=== PATIENT | female | born 2000 | race Hispanic/Latino ===

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

== ENCOUNTER 2020-01-25 05:25 | Emergency (ER) | payer SELFPAY ==
--- OUTSIDE RECORDS SUMMARY | 2020-01-25 05:27 | XMS REPORT ---
:2000 [facility] Christine [address] [place] [id number] Care Team Providers Name Role Phone Unavailable Unavailable Unavailable Problems This patient has no known problems. Allergies, Adverse Reactions, Alerts This patient has no known allergies or adverse reactions. Medications This patient has no known medications.
[2020-01-25] MEDS ORDERED: NA CHLORIDE 0.9% 1,000 ML ONE (06:44)
[2020-01-25] MEDS ORDERED: ONDANSETRON 4 MG/2 ML VIAL ONE (06:44)
[2020-01-25] MEDS ORDERED: ACETAMINOPHEN 500 MG TAB ONE (06:44)
[2020-01-25 06:54] LABS: Absolute Lymphocytes (CBC) 2.4 K/uL (0.7-4.9); Basophils % 0.5 % (0-1.3); Hematocrit 34.8 % (36.0-45.0); Lymphocytes % 20.7 % (15.3-44.8); MPV 7.3 fL (7.6-11.3); RBC Red Blood Cell Count 4.95 M/uL (3.86-4.86)
[2020-01-25 07:00] LABS: Urine Blood NEGATIVE (NEG); Urine Glucose NEGATIVE (NEG); Urine Protein NEGATIVE (NEG)
[2020-01-25 07:17] LABS: Urine Bacteria <20 /HPF (<20); Urine Culture Reflex Order REFLEXED; Urine RBC <5 /HPF (NONE SEEN)
[2020-01-25 07:28] LABS: ALT/SGPT 10 U/L (12-78); AST/SGOT 9 U/L (15-37); Albumin 3.1 g/dL (3.4-5.0); Alkaline Phosphatase 145 U/L (45-117); BUN Blood Urea Nitrogen 5 mg/dL (7-18); Bicarbonate 24 mmol/L (21-32); Bilirubin Direct < 0.1 mg/dL (0-0.2); Bilirubin Total 0.2 mg/dL (0.2-1.0); Glucose Level 86 mg/dL (74-106); HCG, Quantitative 43619 mIU/mL (1-3); Potassium 3.8 mmol/L (3.5-5.1); Protein, Total 8.1 g/dL (6.4-8.2); Sodium Level 137 mmol/L (136-145)
--- NOTE | 2020-01-25 08:26 | EDPHYS ---
Physician Documentation [facility] Name: Maxine Durbin Age: 19 yrs Sex: Female : 2000 Arrival Date: 01/25/2020 Time: 05:28 Bed 18 Private MD: ED Physician Alexandru Rowan HPI: 01/24 07:38 This 19 yrs old Female presents to ER via Ambulatory with complaints of jr8 Abdominal Pain. 07:38 The patient presents with abdominal pain in the lower abdomen. Onset: The jr8 symptoms/episode began/occurred acutely, today. The symptoms do not radiate. Associated signs and symptoms: Pertinent positives: nausea and vomiting. The symptoms are described as crampy. Modifying factors: The symptoms are alleviated by nothing, the symptoms are aggravated by nothing. Severity of pain: At its worst the pain was mild in the emergency department the pain is unchanged. The patient has not experienced similar symptoms in the past. The patient has not recently seen a physician. Patient approximately 14 weeks . Denies discharge or spotting. Stated that she started with lower abdominal pain. Has n/v related to . 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 - Social history:: Smoking status: Patient denies any tobacco usage or history of. ROS: 07:38 Eyes: Negative for injury, pain, redness, and discharge, ENT: Negative for injury, jr8 pain, and discharge, Neck: Negative for injury, pain, and swelling, Cardiovascular: Negative for chest pain, palpitations, and edema, Respiratory: Negative for shortness of breath, cough, wheezing, and pleuritic chest pain, Back: Negative for injury and pain, MS/Extremity: Negative for injury and deformity, Skin: Negative for injury, rash, and discoloration, Neuro: Negative for headache, weakness, numbness, tingling, and seizure. 07:38 Abdomen/GI: Positive for abdominal pain, nausea and vomiting, abdominal cramps. Exam: 07:38 Eyes: Pupils equal round and reactive to light, extra-ocular motions intact. Lids and jr8 lashes normal. Conjunctiva and sclera are non-icteric and not injected. Cornea within normal limits. Periorbital areas with no swelling, redness, or edema. ENT: Nares patent. No nasal discharge, no septal abnormalities noted. Tympanic membranes are normal and external auditory canals are clear. Oropharynx with no redness, swelling, or masses, exudates, or evidence of obstruction, uvula midline. Mucous membranes moist. Neck: Trachea midline, no thyromegaly or masses palpated, and no cervical lymphadenopathy. Supple, full range of motion without nuchal rigidity, or vertebral point tenderness. No Meningismus. Cardiovascular: Regular rate and rhythm with a normal S1 and S2. No gallops, murmurs, or rubs. Normal PMI, no JVD. No pulse deficits. Respiratory: Lungs have equal breath sounds bilaterally, clear to auscultation and percussion. No rales, rhonchi or wheezes noted. No increased work of breathing, no retractions or nasal flaring. Back: No spinal tenderness. No costovertebral tenderness. Full range of motion. Skin: Warm, dry with normal turgor. Normal color with no rashes, no lesions, and no evidence of cellulitis. MS/ Extremity: Pulses equal, no cyanosis. Neurovascular intact. Full, normal range of motion. Neuro: Awake and alert, GCS 15, oriented to person, place, time, and situation. Cranial nerves II-XII grossly intact. Motor strength 5/5 in all extremities. Sensory grossly intact. Cerebellar exam normal. Normal gait. 07:38 Abdomen/GI: Inspection: abdomen appears normal, Bowel sounds: active, all quadrants, Palpation: soft, in all quadrants, mild abdominal tenderness, in the suprapubic area, right lower quadrant and left lower quadrant, mass, is not appreciated, rebound tenderness, is not appreciated, voluntary guarding, is not appreciated, involuntary guarding, is not appreciated, no appreciated organomegaly, Indicators: McBurney's point is not tender, Haywood's sign is negative, Rovsing's sign is negative, Liver: tenderness, is not appreciated. Vital Signs: 05:56 BP 108 / 68; Pulse 101; Resp 16 S; Temp 98.6(O); Pulse Ox 99% on R/A; Weight 81.65 kg bb (R); Height 5 ft. 0 in. (152.40 cm) (R); Pain 6/10; 06:56 BP 110 / 72; Pulse 79; Resp 18; Pulse Ox 100% ; ao 05:56 Body Mass Index 35.15 (81.65 kg, 152.40 cm) bb MDM: 06:11 Patient medically screened. rust 08:17 Data reviewed: vital signs, nurses notes, lab test result(s), radiologic studies, jr8 ultrasound. Data interpreted: Pulse oximetry: on room air is 100 %. Interpretation: normal. Counseling: I had a detailed discussion with the patient and/or guardian regarding: the historical points, exam findings, and any diagnostic results supporting the discharge/admit diagnosis, lab results, radiology results, the need for outpatient follow up, a family practitioner, an OB/Gyne specialist, to return to the emergency department if symptoms worsen or persist or if there are any questions or concerns that arise at home. Response to treatment: the patient's symptoms have mildly improved after treatment, patient is well hydrated. ED course: Discussed with patient that there were no abnormal findings on US. Labs stable. Recommended observation at home for now. If she were to have worsening of pain, developing diarrhea, or fevers. To come back for reevaluation. Otherwise needs to f/u with OB. Patient good with this. 01/24 06:34 Order name: Quantitative Hcg; Complete Time: 07:37 01/24 06:34 Order name: Basic Metabolic Panel; Complete Time: 07:37 01/24 06:34 Order name: CBC with Diff; Complete Time: 06:57 01/24 06:34 Order name: LFT's; Complete Time: 07:37 01/24 06:34 Order name: Urine Microscopic Only; Complete Time: 07:21 8 01/24 06:57 Order name: Urine Dipstick--Ancillary (enter results); Complete Time: 07:21 va 01/24 06:34 Order name: Urine Test (obtain specimen); Complete Time: 06:46 01/24 06:34 Order name: IV Saline Lock; Complete Time: 06:46 01/24 06:57 Order name: Urine --Ancillary (enter results); Complete Time: 07:21 mt 01/24 06:59 Order name: US OB Limited; Complete Time: 08:39 rust 01/24 07:19 Order name: Urine Culture [facility] 01/24 06:34 Order name: Labs collected and sent; Complete Time: 06:46 jr8 01/24 06:34 Order name: NPO; Complete Time: 06:35 jr 01/24 06:34 Order name: Urine Dipstick-Ancillary (obtain specimen); Complete Time: 06:46 jr8 Administered Medications: 06:46 Drug: Tylenol 1000 mg Route: PO; ao 07:07 Follow up: Response: No adverse reaction ao 06:46 Drug: NS 0.9% 1000 ml Route: IV; Rate: 1000 ml; Site: right antecubital; ao 07:07 Follow up: IV Status: Completed infusion; IV Intake: 1000ml ao 06:46 Drug: Zofran (Ondansetron) 4 mg Route: IVP; Site: right antecubital; ao 07:07 Follow up: Response: No adverse reaction ao Disposition: 01/25 07:01 Co-signature as Attending Physician, Alexandru Rowan MD I agree with the assessment and tw4 plan of care. Disposition: 01/25/20 08:25 Discharged to Home. Impression: Abdominal and pelvic pain. - Condition is Stable. - Discharge Instructions: Abdominal Pain During . - Prescriptions for Zofran 4 mg Oral Tablet - take 1 tablet by ORAL route every 12 hours As needed; 20 tablet. - Medication Reconciliation Form, Thank You Letter, Antibiotic Education, Prescription Opioid Use form. - Follow up: Private Physician; When: 2 - 3 days; Reason: Recheck today's complaints, Continuance of care, Re-evaluation by your physician. - Problem is new. - Symptoms have improved. Signatures: Dispatcher [employer] [facility] Maryann Chu RN RN bb Smirch, Shelby, RN RN ss Roszak, Josh, PA PA jr8 Jamaal Mitchell RN RN ao Wadley, Terrence, MD MD tw4 Corrections: (The following items were deleted from the chart) 01/24 08:41 08:25 01/25/2020 08:25 Discharged to Home. Impression: Abdominal and pelvic pain. ss Condition is Stable. Forms are Medication Reconciliation Form, Thank You Letter, Antibiotic Education, Prescription Opioid Use. Follow up: Private Physician; When: 2 - 3 days; Reason: Recheck today's complaints, Continuance of care, Re-evaluation by your physician. Problem is new. Symptoms have improved. jr8
--- NOTE | 2020-01-25 08:26 | ER ---
Nurse's Notes [facility] Name: Maxine Durbin Age: 19 yrs Sex: Female : 2000 Arrival Date: 01/25/2020 Time: 05:28 Bed 18 Private MD: Diagnosis: Abdominal and pelvic pain Presentation: 01/24 05:56 Chief complaint: Patient states: she is c/o lower abdominal intermittent pain since bb yesterday then this morning she was shaking like she was going to have a seizure but she did not have a seizure pt is 14 weeks . Coronavirus screen: The patient has NOT traveled to a country currently being monitored by the [facility] within the last 14 days. Proceed with normal triage procedures. Ebola Screen: No symptoms or risks identified at this time. Initial Sepsis Screen: Does the patient meet any 2 criteria? No. Patient's initial sepsis screen is negative. Does the patient have a suspected source of infection? No. Patient's initial sepsis screen is negative. Risk Assessment: Do you want to hurt yourself or someone else? Patient reports no desire to harm self or others. Onset of symptoms was January 24, 2020. 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 - Social history:: Smoking status: Patient denies any tobacco usage or history of. Screenin:02 Abuse screen: Denies threats or abuse. Denies injuries from another. Nutritional ao screening: No deficits noted. Tuberculosis screening: No symptoms or risk factors identified. Fall Risk None identified. Assessment: 05:58 General: Appears in no apparent distress. comfortable, Behavior is calm, cooperative, ao appropriate for age. Pain: Complains of pain in abdomen Pain. Neuro: Level of Consciousness is awake, alert, obeys commands, Moves all extremities. Full function Speech is normal, Facial symmetry appears normal. Cardiovascular: Capillary refill < 3 seconds Patient's skin is warm and dry. Respiratory: Airway is patent Respiratory effort is even, unlabored, Respiratory pattern is regular, symmetrical. GI: Bowel sounds present X 4 quads. Abd is soft and non tender. : Urine is clear. EENT: No signs and/or symptoms were reported regarding the EENT system. Derm: Skin is intact, Skin is pink, warm \T\ dry. normal, Skin temperature is warm. Musculoskeletal: No signs and/or symptoms reported regarding the musculoskeletal system. 07:45 Reassessment: Patient is alert, oriented x 3, equal unlabored respirations, skin aa5 warm/dry/pink. Patient denies pain at this time. Patient states feeling better. Pt denies vaginal bleeding. Awaiting US results, pt notified of wait time . Vital Signs: 05:56 BP 108 / 68; Pulse 101; Resp 16 S; Temp 98.6(O); Pulse Ox 99% on R/A; Weight 81.65 kg bb (R); Height 5 ft. 0 in. (152.40 cm) (R); Pain 6/10; 06:56 BP 110 / 72; Pulse 79; Resp 18; Pulse Ox 100% ; ao 05:56 Body Mass Index 35.15 (81.65 kg, 152.40 cm) bb ED Course: 05:28 Patient arrived in ED. cl3 05:57 Jamaal Mitchell, RN is Primary Nurse. ao 05:59 Triage completed. bb 06:00 Arm band placed on Patient placed in an exam room, on a stretcher, on pulse oximetry. bb Family accompanied patient. 06:02 Patient has correct armband on for positive identification. Pulse ox on. NIBP on. ao 06:10 Giuliano Muñoz PA is PHCP. jr8 06:10 Alexandru Rowan MD is Attending Physician. jr8 06:40 Inserted saline lock: 20 gauge in right antecubital area, using aseptic technique. ao ,using aseptic technique. By nuclear reactor technicianNan Padgett Blood collected. 07:07 Report given to BAM Orozco. ao 07:14 US OB Limited In Process Unspecified. EDMS 07:56 Report received from BAM Hinton. aa5 08:41 No provider procedures requiring assistance completed. IV discontinued, intact, ss bleeding controlled, No redness/swelling at site. Pressure dressing applied. Administered Medications: 06:46 Drug: Tylenol 1000 mg Route: PO; ao 07:07 Follow up: Response: No adverse reaction ao 06:46 Drug: NS 0.9% 1000 ml Route: IV; Rate: 1000 ml; Site: right antecubital; ao 07:07 Follow up: IV Status: Completed infusion; IV Intake: 1000ml ao 06:46 Drug: Zofran (Ondansetron) 4 mg Route: IVP; Site: right antecubital; ao 07:07 Follow up: Response: No adverse reaction ao Intake: 07:07 IV: 1000ml; Total: 1000ml. ao Outcome: 08:25 Discharge ordered by MD. rich 08:41 Discharged to home ambulatory. ss 08:41 Condition: good 08:41 Discharge instructions given to patient, Instructed on discharge instructions, follow up and referral plans. medication usage, Demonstrated understanding of instructions, follow-up care, medications, Prescriptions given X 1. 08:41 Patient left the ED. ss Signatures: Dispatcher [employer] EDMS Maryann Chu RN RN bb Calderon, Audri, RN RN aa5 Melody Tirado RN RN ss Roszak, Josh, PA PA jr8 Jamaal Mitchell RN RN ao Lewis, Charde cl3
--- NOTE | 2020-01-25 08:34 | RAD REPORT ---
EXAM DESCRIPTION: US - OB Limited - 01/25/2020 7:11 am CLINICAL HISTORY: with abdominal cramping FINDINGS: A limited OB ultrasound performed to assess amniotic fluid, viability, cervix and pl acenta Placenta is anterior. No subchorionic/retroplacental bleed Amniotic fluid within normal limits Cardiac activity 153 beats per minute. Cervix is closed and normal caliber. Right and left adnexal unremarkable IMPRESSION: Unremarkable limited OB ultrasound
[2020-01-25 09:10] VITALS: TEMP 98.6
[2020-01-25 09:12] VITALS: BP 110/72; O2SAT 100
== END 2020-01-25 08:41 | disposition home or self-care (01) ==
LOC: ER 05:25
DX: R10.9 Unspecified abdominal pain (principal); R10.2 Pelvic and perineal pain; Z88.0 Allergy status to penicillin
CPT/HCPCS: 36415; 76815; 80048; 80076; 81003; 81015; 81025; 84702; 85025; 87086; 87088; 96374; 99284; J2405; J7030

== ENCOUNTER 2022-02-21 13:18 | Emergency (ER) | payer SELFPAY ==
--- OUTSIDE RECORDS SUMMARY | 2022-02-21 13:21 | XMS REPORT | Continuity of Care Document ---
:2000 Author Organization [facility] t Address [address] [place] [address] Care Team Providers Name Role Phone Pcp, Patient Does Not Have A Primary Care Physician [id number] Singer FOX Attending Clinician Akinsipe WHCNP, C Attending Clinician AKINCARLITOS C Attending Clinician Unavailable Chester LOAIZA, R Attending Clinician Sean LOREDO Attending Clinician Unavailable NADEEM ART Attending Clinician Unavailable MINH Attending Clinician Unavailable Fifi SANTIAGO Admitting Clinician Unavailable Maurice MASSEY Admitting Clinician Unavailable Payers Payer Name Policy Type Policy Number Effective Date Expiration Date S ralph [facility] MOM CHIP DEWEY [id number] 2020 LOW FPL 00:00:00 [employer] MOM [id number] 2020 CHIP DEWEY LOW FPL 00:00:00 TITLE V 0-100% [id number] 2013 2013 00:00:00 00:00:00 Advance Directives Directive Decision Effective Termination Comments Source Date Date Healthcare Agents on N/A [facility] ersity FileNameRelationshipHealthcare [facility] Agent Medical RelationshipCommunicationCentral Park Hospitalther[facility] Care [phone] (Mobile) [email or web address] Condition Condition Condition Status Onset Resolution Last Treating Co mments Source Name Details Category Date Date Treatment Clinician Date COVID-19 COVID-19 Disease Active 2019- Unive rs 7-18 ity of 00:00: [place] 00 Medical Branch 32 weeks 32 weeks Disease Active 2019- Unive rs gestation gestation 7-18 ity of of of 00:00: [place] 00 [facility] Branch Need for Need for Disease Active Unive rs Tdap Tdap 7-02 ity of vaccinatio vaccinatio [place] Obesity Obesity Disease Active 2019- Univers (BMI (BMI 6-28 ity of 30-39.9) 30-39.9) 00:00: [place] 00 Medical Branch Circumvall Circumvall Disease Active 2019- U nivers ate ate 4-30 ity of placenta placenta 00:00: [place] during during 00 Medical Bran ch in second in second trimester, trimester, antepartum antepartum Anemia of Anemia of Disease Active Uni vers mother in mother in 4-28 [place] , , [place] ante[place] antepartum 00 Me dical Branch Abnormal Abnormal Disease Active Overview: Un aline maternal maternal 4-28 Formattin ity of glucose glucose 00:00: g of this [place] tolerance, tolerance, 00 note Me dical antepartum antepartum might be Branch different from the original. Passed 3hr gtt Supervisio Supervisio Disease Active 2019-0 U nivers n of n of 4-23 ity of high-risk high-risk 00:[place] [facility] with with Branch insufficie insufficie nt nt care care Multiparit Multiparit Disease Active 2019-0 U nivers y y 4-23 ity of 00:00: [place] 00 Medical Branch Obesity in Obesity in Disease Active 2020-0 U nivers 4-23 ity of 00:00: [place] 00 Medical Branch Hx of Hx of Disease Active Univers maternal maternal 7-21 ity of laceration laceration 00:00: [place] , 4th , 4th 00 Medical degree, degree, Branch currently currently , , second second trimester trimester Seizure Seizure Disease Active Univers disorder disorder 6-28 ity of during during 00:00: [place] 00 [facility] in third in third Branch trimester trimester History of History of Disease Active Overview : Univers seizure seizure 4-22 Formattin ity o f 00:00: g of this [place] 00 note Medical might be Branch different from the original. Last seizure x2 years ago, last on meds 5 months ago Allergies, Adverse Reactions, Alerts Allergy Allergy Status Severity Reaction(s) Onset Inactive Treating Comm ents Source Name Type Date Date Clinician FELISHALL DRUG Active Rash Univers IN INGREDI 07-02 ity of 00:00: [place] 00 Medical Branch Ampicill Propensi Active Rash Univer s in ty to 816 ity of adverse 00:00: [place] reaction 00 Medical s Branch Social History Social Habit Start Date Stop Date Quantity Comments Source Exposure to Not sure [facility] SARS-CoV-2 [place] [facility] (event) Branch Alcohol intake 2020-06-08 2020-06-08 Current University of 00:00:00 00:00:00 non-drinker of [facility] alcohol [place] (finding) Tobacco use and 2013-07-02 2013-07-02 Never used Universit y of exposure 00:00:00 00:00:00 [facility] Tobacco Comment 2013-07-02 2013-07-02 no smoke Universit y of 00:00:00 00:00:00 exposure [facility] Sex Assigned At 2000 2000 Universit y of 00:00:00 00:00:00 [facility] Smoking Status Start Date Stop Date Source Never smoker [facility] Medications Ordered Filled Start Stop Current Ordering Indication Dosage Frequency Signature Comments Components Source Medication Medication Date Date Medication? Clinician (SIG) Name Name levETIRAcet 2020- No 1500mg 1,500 mg, Univers am (KEPPRA) 08-05 IV ity of in NACL 10:00: 09:16 [place] (ISO-OS[place] 00 :00 ONCE, 1 Medical 1,500 dose, On Branch mg/100 mL Sun RTU 08/05/21 at 0500, Administer over 15 Minutes, 100 mL levETIRAcet Yes [id number] 1500mg Take 3 Univers am 500 mg 08-05 tablets by ity of tablet 00:00: mouth 2 00 (two) Medical times Branch daily. docusate Yes [id number] 240mg Take 1 U nivers calcium 240 7-21 capsule by it y of mg capsule 00:00: mouth [place] 00 daily as Medical needed for Branch Constipati on. ibuprofen 2019- Yes [id number] 600mg Take 1 Univers 600 mg 7-21 tablet by ity of tablet 00:00: mouth [place] 00 every 6 Medical (six) Branch hours as needed for Pain (scale 1-3). simethicone 2019- Yes [id number] 160mg Take 2 Univers 80 mg 7-21 tablets by ity of chewable 00:00: mouth [place] tablet 00 after Medical meals and Branch at bedtime as needed for Gas. 2019-0 Yes [id number] 1{tbl} Take 1 Univers vitamin 7-21 tablet by ity of w/FA tablet 00:00: mouth [place] 00 daily. Medical Branch ferrous 2019- Yes [id number] 325mg Take 1 Un aline sulfate 325 5-28 tablet by ity of mg (65 mg 00:00: mouth 2 [place] iron) 00 (two) Medical tablet times Branch daily. levETIRAcet 2020- No [id number] 1500mg Take 3 Univers am 500 mg 4-30 09-19 tablets by ity of tablet 00:00: 00:00 mouth 2 [place] 00 :00 (two) Medical times Branch daily. ascorbic 2019- Yes [id number] 500mg Take 1 U nivers acid, 4-28 tablet by ity of vitamin C, 00:00: [place] 3 [place] 500 mg 00 (three) Medical tablet times Branch daily. Immunizations Ordered Immunization Filled Immunization Date Status Commen ts Source Name Name [facility] 2020-05-18 Completed University of 00:00:00 [facility] TDAP 2018-03-19 Completed University of 00:00:00 [facility] Influenza Virus 2017-12-25 Completed Universit y of Vaccine Quad IM 3+ 00:00:00 [facility] Influenza Virus 2011-09-02 Completed Universit y of Vaccine - Whole 00:00:00 [facility] ical [place] HPV 2011-09-02 Completed University of 00:00:00 [facility] Meningococcal 2011-05-02 Completed University of Vaccine 00:00:00 [facility] TDAP 2011-05-02 Completed University of 00:00:00 [facility] HPV 2011-05-02 Completed University of 00:00:00 [facility] DTAP 2011-05-02 Completed University of 00:00:00 [facility] HEPATITIS A 2011-02-18 Completed University of 00:00:00 [facility] HPV 2011-02-18 Completed University of 00:00:00 [facility] HEPATITIS A 2007-12-17 Completed University of 00:00:00 [facility] DTAP 2007-12-17 Completed University of 00:00:00 [facility] Polio (IPV/OPV) 2007-12-17 Completed Universit y of 00:00:00 [facility] MMR 2006-08-29 Completed University of 00:00:00 [facility] MMR 2001-03-12 Completed University of 00:00:00 [facility] Polio (IPV/OPV) 2001-02-09 Completed Universit y of 00:00:00 [facility] Hep B, Adol or Pedi 2001-02-09 Completed Unive rsity of Dosage 00:00:00 [facility] Polio (IPV/OPV) 2000 Completed Universit y of 00:00:00 [facility] DTAP 2000 Completed University of 00:00:00 [facility] Hep B, Adol or Pedi 2000 Completed Unive rsity of Dosage 00:00:00 [facility] Polio (IPV/OPV) 2000 Completed Universit y of 00:00:00 [facility] Vital Signs Vital Name Observation Time Observation Value Comments Source Systolic blood 2021-08-05 09:30:00 98 mm[Hg] Univer sity of pressure [facility] Diastolic blood 2021-08-05 09:30:00 57 mm[Hg] Unive rsity of pressure [facility] Heart rate 2021-08-05 09:30:00 80 /min [facility] Respiratory rate 2021-08-05 09:30:00 17 /min [facility] Oxygen saturation in 2021-08-05 09:30:00 98 /min [facility] Arterial blood by [facility] Pulse oximetry Branch Body temperature 2021-08-05 08:44:00 36.67 Glendy [facility] Body height 2021-08-05 08:44:00 152.4 cm [facility] Body weight 2021-08-05 08:44:00 77.111 kg Universi ty [facility] BMI 2021-08-05 08:44:00 33.20 kg/m2 Universi ty [facility] Procedures Procedure Date / Time Performed Performing Clinician Sour e COMP. METABOLIC PANEL 2021-08-05 08:59:00 Sergio Suárez [facility] ([id number]) Medical [place] CBC WITH DIFF 2021-08-05 08:59:00 Singer [facility] o [facility] [place] [facility] URINALYSIS 2021-08-05 08:59:00 Singer [facility] o [facility] [place] [facility] NOTICE OF PRIVACY 2021-08-05 08:38:51 Doctor Unassigned, No Univ [facility] PRACTICES Name Medical Branch CONSENT/REFUSAL FOR 2021-08-05 08:38:28 Doctor Unassigned, No [facility] AND Name Medical Branch TREATMENT Encounters Start End Encounter Admission Attending Care Care Encounter Source Date/Time Date/Time Type Type Clinicians Facility Department ID 2021-09-17 Emergency [facility] [id number] Univers 23:40:28 ity of [facility] 2021-09-16 Emergency [facility] [id number] Univers 21:18:55 ity of [facility] 2021-09-16 Emergency [facility] [id number] Univers 21:18:36 ity of [facility] 2021-09-14 Outpatient P [facility] [id number] Univers 08:32:37 ity of [facility] 2021-09-14 Emergency [facility] [id number] Univers 08:32:20 ity of [facility] 2021-09-14 Emergency [facility] [id number] Univers 07:28:44 ity of [facility] 2021-09-14 Outpatient P [facility] [id number] Univers 03:17:06 ity of [facility] 2021-09-14 Emergency [facility] [id number] Univers 03:16:43 ity of [facility] 2021-08-05 2021-08-05 Emergency Singer [facility] [id number] Univers 03:48:00 04:33:00 Sergio Lara [id number] i ty zay Esqueda [id number] [facility] [id number] [address] 2020-08-14 2020-08-14 [facility] [id number] 00:00:00 00:00:00 (Out) 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 [id number] REGIONAL [id number] MATERNAL [id number] & CHILD 107 [facility] 2020-07-17 2020-07-17 Outpatient R KATHERINECARLITOS [facility] [id number] Univers 10:30:00 10:30:00 JENIN [id number] ity o [facility] [place] [facility] 2020-07-17 2020-07-17 Outpatient R KATHERINECARLITOS [facility] [id number] Univers 10:30:00 10:30:00 JENNI zhu o [facility] [place] [facility] 2020-07-06 2020-07-06 Outpatient [facility] [id number] Univers 10:30:00 10:30:00 [facility] 2020-07-06 2020-07-06 Telephone [facility] [id number] 00:00:00 00:00:00 Rosmauranda R PLUNGER SHOVEL OPERATOR [id number] REGIONAL [id number] MATERNAL [id number] & CHILD 107 [facility] 2020-06-12 2020-06-12 Telemedici [facility] [id number] 09:20:08 13:15:48 ne Visit Rosmauranda R PLUNGER SHOVEL OPERATOR [id number] [facility] [id number] MATERNAL [id number] & CHILD 107 [facility] 2020-06-12 2020-06-12 Outpatient R CHESTER [facility] [id number] Univers 09:30:00 09:30:00 KELLIEHUNDA [id number] itwilliam o [facility] [place] [facility] 2020-06-12 2020-06-12 Outpatient R CHESTER [facility] [id number] Univers 09:30:00 09:30:00 ROSHUNDA itwilliam o [facility] [place] [facility] 2020-06-08 2020-06-08 Outpatient [facility] [id number] Univers 10:15:00 10:15:00 [id number] ity of [facility] 2020-06-08 2020-06-08 Outpatient P RUBENS [facility] [id number] Univers 10:15:00 10:15:00 SE ity of [facility] 2020-06-01 2020-06-01 Outpatient R [facility] [id number] Univers 09:30:00 09:30:00 [id number] ity of [facility] 2020-06-01 2020-06-01 Outpatient R [facility] [id number] Univers 09:30:00 09:30:00 ity of [facility] 2020-05-18 2020-05-18 Outpatient R CHESTER [facility] [id number] Univers 08:15:00 08:15:00 ALEXIS ity o f [facility] 2020-05-18 2020-05-18 Outpatient R CHESTER [facility] [id number] Univers 08:15:00 08:15:00 ALEXIS ity o f [facility] 2020-05-11 2020-05-11 Outpatient R [facility] [id number] Univers 14:15:00 14:15:00 [id number] ity of [facility] 2020-05-11 2020-05-11 Outpatient P [facility] [id number] Univers 14:15:00 14:15:00 ity of [facility] 2020-05-08 2020-05-08 Outpatient R CHESTER [facility] [id number] Univers 13:45:00 13:45:00 ALEXIS [id number] ity o f [facility] 2020-05-08 2020-05-08 Outpatient R CHESTER [facility] [id number] Univers 13:45:00 13:45:00 ALEXIS ity o f [facility] 2020-05-04 2020-05-04 Outpatient R [facility] [id number] Univers 08:00:00 08:00:00 [id number] ity of [facility] 2020-05-04 2020-05-04 Outpatient R [facility] [id number] Univers 08:00:00 08:00:00 ity of [facility] 2020-05-04 2020-05-04 Outpatient R [facility] [id number] Univers 08:00:00 08:00:00 ity of [facility] 2020-04-19 2020-04-19 Outpatient [facility] [id number] Univers 13:30:00 13:30:00 ity of [facility] 2020-04-13 2020-04-13 Outpatient R [facility] [id number] Univers 10:00:00 10:00:00 [id number] ity of [facility] 2020-04-13 2020-04-13 Outpatient R [facility] [id number] Univers 10:00:00 10:00:00 ity of [facility] 2020-03-17 2020-03-17 Outpatient R [facility] [id number] Univers 07:45:00 07:45:00 ity of [facility] 2020-03-17 2020-03-17 Outpatient R [facility] [id number] Univers 07:45:00 07:45:00 ity of [facility] 2020-03-16 2020-03-16 Outpatient R [facility] [id number] Univers 09:00:00 09:00:00 [id number] ity of [facility] 2020-03-16 2020-03-16 Outpatient R [facility] [id number] Univers 09:00:00 09:00:00 ity of [facility] 2020-03-10 2020-03-10 Outpatient R [facility] [id number] Univers 13:00:00 13:00:00 [id number] ity of [facility] 2020-03-10 2020-03-10 Outpatient P [facility] [id number] Univers 13:00:00 13:00:00 ity of [facility] 2020 2020 Outpatient R AKINSIPE, [facility] [id number] Univers 08:15:00 08:15:00 JENNI zhaoy o f [facility] 2020 2020 Outpatient R AKINSIPE, [facility] [id number] Univers 08:15:00 08:15:00 JENNI zhu o f [facility] 2013-07-02 2013-07-02 Outpatient R MINH, [facility] [id number] Univers 11:00:00 12:37:11 BHAKTI zhu [facility] Results Test Description Test Time Test Comments Results Result Comments Source COMP. METABOLIC PANEL (15066) 2021-08-05 09:21:32 Test Item Value Reference Range Interpretation Comme nts NA (test code = 5486852129) 138 mmol/L 135-145 K (test code = 3915621234) 3.4 mmol/L 3.5-5.0 L CL (test code = 8787692530) 106 mmol/L 98-108 CO2 TOTAL (test code = 8082428236) 24 mmol/L 23-31 AGAP (test code = 8005812118) 2-16 BUN (test code = 8183743123) 16 mg/dL 7-23 GLUCOSE (test code = 7466144401) 72 mg/dL 70-110 CREATININE (test code = 0.55 mg/dL 0.50-1.04 5616567378) TOTAL BILI (test code = 0.4 mg/dL 0.1-1.7 1544641166) CALCIUM (test code = 8394657367) 8.9 mg/dL 8.6-10.6 T PROTEIN (test code = 3370605839) 7.7 g/dL 6.3-8.2 ALBUMIN (test code = 2933091605) 4.4 g/dL 3.5-5.0 ALK PHOS (test code = 9328506145) 105 U/L 34-122 ALTv (test code = 1742-6) 10 U/L 5-35 AST(SGOT) (test code = 2614083368) 19 U/L 13-40 eGFR (test code = 9740561287) mL/min/1.73m2 MURRAY (test code = MURRAY) Association of Glomerular Filtration Rate (GFR) and Staging of Kidney Disease* + +-------- + ------+| GFR (mL/min/1.73 m2) ?| With Kidney Damage ?| ?Without Kidney Damage+ +-- + +| ?>90 ?| ?Stage one ?| ? Normal ?+ +------- + -------+| ?60-89 ?| ?Stage two ?| ? Decreased GFR ? + +-------- + ------+| ?30-59 ?| ?Stage three ?| ? Stage three ? + +-------- + ------+| ?15-29 ?| ?Stage four ? | ? Stage four ?+ +------- + -------+| ?<15 (or dialysis) ? ?| ?Stage five ? | ? Stage five ?+ +------- + -------+ *Each stage assumes the associated GFR level has been in effect for at least three months. ?Stages 1 to 5, with or without kidney disease, indicate chronic kidney disease. Notes: Determination of stages one and two (with eGFR >59mL/min/1.73 m2) requires estimation of kidney damage for at least three months as defined by structural or functional abnormalities of the kidney, manifested by either:Pathological abnormalities or Markers of kidney damage (including abnormalities in the composition of the blood or urine or abnormalities in imaging tests). Lab Interpretation (test code = Abnormal 98238-2) [facility] WITH [id number] 09:09:52 Test Item Value Reference Range Interpretation Comments WBC (test code = See_Comment [Automated 6690-2) message] The sy stem which generated this result transmitted reference range : 4.30 - 11.10 10*3/?L. The reference range was not used to interpret this result as normal/abnormal . RBC (test code = See_Comment [Automated 789-8) message] The sy stem which generated this result transmitted reference range : 3.93 - 5.25 10*6/?L. The reference range was not used to interpret this result as normal/abnormal . HGB (test code = 10.3 g/dL 11.6-15.0 L 718-7) HCT (test code = 33.1 % 35.7-45.2 L 4544-3) MCV (test code = 72.7 fL 80.6-95.5 L 787-2) MCH (test code = 22.6 pg 25.9-32.8 L 785-6) MCHC (test code = 31.1 g/dL 31.6-35.1 L 786-4) RDW-SD (test code = 40.9 fL 39.0-49.9 33190-8) RDW-CV (test code = 15.7 % 12.0-15.5 H 788-0) PLT (test code = See_Comment H [Automated 777-3) message] The sy stem which generated this result transmitted reference range : 166 - 358 10*3/ ?L. The reference r venus was not used to interpret this result as normal/abnormal . MPV (test code = 9.3 fL 9.5-12.9 L 45376-0) NRBC/100 WBC (test See_Comment [Automat ed code = 3203758376) message] The system which generated this result transmitted reference range : 0.0 - 10.0 /100 WBCs. The refer ence range was not u sed to interpret th is result as normal/abnormal . NRBC x10^3 (test code <0.01 See_Comment [Auto mated = 2964842224) message] The s ystem which generated this result transmitted reference range : 10*3/?L. The reference range was not used to interpret this result as normal/abnormal . GRAN MAT (NEUT) % 67.6 % (test code = 770-8) IMM GRAN % (test code 0.20 % = 0449479339) LYMPH % (test code = 23.6 % 736-9) MONO % (test code = 6.5 % 5905-5) EOS % (test code = 1.7 % 713-8) BASO % (test code = 0.4 % 706-2) GRAN MAT x10^3(ANC) 6.30 10*3/uL 1.88-7.09 (test code = 0939725388) IMM GRAN x10^3 (test <0.03 0.00-0.06 code = 7101152482) LYMPH x10^3 (test code 2.20 10*3/uL 1.32-3.29 = 731-0) MONO x10^3 (test code 0.61 10*3/uL 0.33-0.92 = 742-7) EOS x10^3 (test code = 0.16 10*3/uL 0.03-0.39 711-2) BASO x10^3 (test code 0.04 10*3/uL 0.01-0.07 = 704-7) Lab Interpretation Abnormal (test code = 51211-2) [facility]"
[2022-02-21] MEDS ORDERED: ONDANSETRON 4 MG (ODT) TAB ONE (14:27)
[2022-02-21 16:17] LABS: Absolute Lymphocytes (CBC) 0.5 K/uL (0.7-4.9); Hematocrit 39.2 % (36.0-45.0); MPV 7.5 fL (7.6-11.3); RBC Red Blood Cell Count 5.44 M/uL (3.86-4.86)
[2022-02-21 16:42] LABS: ALT/SGPT 23 U/L (12-78); AST/SGOT 19 U/L (15-37); Albumin 4.2 g/dL (3.4-5.0); Alkaline Phosphatase 151 U/L (45-117); BUN Blood Urea Nitrogen 10 mg/dL (7-18); Bicarbonate 20 mmol/L (21-32); Bilirubin Total 0.4 mg/dL (0.2-1.0); Glucose Level 99 mg/dL (74-106); Lipase 105 U/L (73-393); Potassium 3.1 mmol/L (3.5-5.1); Protein, Total 9.1 g/dL (6.4-8.2); Sodium Level 136 mmol/L (136-145)
[2022-02-21] MEDS ORDERED: NA CHLORIDE 0.9% 1,000 ML ONE (16:47)
[2022-02-21] MEDS ORDERED: FAMOTIDINE 20 MG/2 ML VIAL IV ONE (16:48)
[2022-02-21 17:01] LABS: Blood Morphology Comment NOT SEEN (NOT SEEN); Platelet Estimate INCR; White Blood Cell Scan OK (OK)
--- NOTE | 2022-02-21 17:50 | RAD REPORT ---
EXAM DESCRIPTION: US - Abdomen Exam Limited - 02/21/2022 5:30 pm CLINICAL HISTORY: ABD PAIN COMPARISON: No comparisons FINDINGS: No gallstones, sludge or other abnormalities within the gallbladder lumen. There is no wal l thickening or pericholecystic fluid. No common duct stone or biliary tree dilatation identified. IMPRESSION: Normal gallbladder and biliary tree ultrasound.
[2022-02-21 18:15] LABS: Urine Blood Trace-intact (Negative); Urine Glucose Negative (Negative); Urine Protein Trace (Negative); Urine Specific Gravity 1.025 (1.005-1.030)
--- NOTE | 2022-02-21 18:31 | EDPHYS ---
Physician Documentation [facility] Name: Maxine Durbin Age: 21 yrs Sex: Female : 2000 Arrival Date: 02/21/2022 Time: 13:20 Bed 15 Private MD: ED Physician Mitchell Sánchez HPI: 02/21 16:15 This 21 yrs old Female presents to ER via Ambulatory with complaints of cp General Weakness, Blood Sugar Problem, Vomiting. 16:15 The patient presents to the emergency department with nausea, that is moderate, cp vomiting, that is continuous, diarrhea, that is continuous. Onset: The symptoms/episode began/occurred this morning. Possible causes: unknown. 16:15 Associated signs and symptoms: Pertinent positives: anorexia, general weakness, cp Pertinent negatives: constipation, dysuria, fever, GI bleeding. Severity of symptoms: in the emergency department the symptoms are unchanged despite home interventions. Patient reports concern about having diabetes. 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 - Social history:: Smoking status: Patient denies any tobacco usage or history of. ROS: 16:20 Constitutional: Positive for poor PO intake, Negative for body aches, chills, fever. cp 16:20 Eyes: Negative for injury, pain, redness, and discharge. cp 16:20 ENT: Negative for drainage from ear(s), ear pain, sore throat, difficulty swallowing, difficulty handling secretions. 16:20 Cardiovascular: Negative for chest pain, palpitations. 16:20 Respiratory: Negative for cough, shortness of breath, wheezing. 16:20 Abdomen/GI: Positive for nausea, vomiting, and diarrhea, Negative for constipation. 16:20 Neuro: Positive for weakness, Negative for altered mental status, dizziness, headache. 16:20 All other systems are negative. Exam: 16:25 Constitutional: The patient appears in no acute distress, alert, awake, non-toxic, well cp developed, well nourished. 16:25 Head/Face: Normocephalic, atraumatic. cp 16:25 Eyes: Periorbital structures: appear normal, Conjunctiva: normal, no exudate, no injection, Sclera: no appreciated abnormality, Lids and lashes: appear normal, bilaterally. 16:25 ENT: External ear(s): are unremarkable, Nose: is normal, Mouth: Lips: moist, Oral mucosa: pink and intact, moist, Posterior pharynx: Airway: no evidence of obstruction, patent. 16:25 Chest/axilla: Inspection: normal, Palpation: is normal, no crepitus, no tenderness. 16:25 Cardiovascular: Rate: normal, Rhythm: regular. 16:25 Respiratory: the patient does not display signs of respiratory distress, Respirations: normal, no use of accessory muscles, no retractions, labored breathing, is not present, Breath sounds: are clear throughout, no decreased breath sounds. 16:25 Abdomen/GI: Inspection: abdomen appears normal, Bowel sounds: active, all quadrants, Palpation: soft, in all quadrants, mild abdominal tenderness, in the epigastric area and right upper quadrant, rebound tenderness, is not appreciated, involuntary guarding, is not appreciated. 16:25 Back: CVA tenderness, is absent. 16:25 Neuro: Orientation: to person, place \T\ time. Mentation: is normal, Motor: moves all fours, strength is normal. Vital Signs: 13:32 BP 132 / 55; Pulse 113; Resp 19; Temp 98.2(TE); Pulse Ox 100% on R/A; Weight 72.57 kg; ab2 Height 5 ft. 0 in. (152.40 cm); Pain 0/10; 16:00 BP 95 / 67; Pulse 82; Resp 16 S; Pulse Ox 100% on R/A; aa5 17:45 BP 110 / 65; Pulse 80; Resp 16 S; Pulse Ox 99% on R/A; aa5 13:32 Body Mass Index 31.25 (72.57 kg, 152.40 cm) ab2 MDM: 15:40 Patient medically screened. cp 17:00 Differential diagnosis: Nonspecific abd pain, gastritis, cholecystitis, pancreatitis, cp appendicitis, viral gastroenteritis, gastroenteritis. 18:30 Data reviewed: vital signs, nurses notes, lab test result(s), radiologic studies, cp ultrasound. 18:30 Counseling: I had a detailed discussion with the patient and/or guardian regarding: the cp historical points, exam findings, and any diagnostic results supporting the discharge/admit diagnosis, lab results, radiology results, to return to the emergency department if symptoms worsen or persist or if there are any questions or concerns that arise at home. Response to treatment: the patient's symptoms have markedly improved after treatment, patient is well hydrated. VSS. Nausea markedly improved and vomiting resolved. Will discharge to home for continued monitoring. 02/21 16:02 Order name: CBC with Diff; Complete Time: 17:17 02/21 16:02 Order name: CMP; Complete Time: 17:17 cp 02/21 17:18 Interpretation: Normal except: K 3.1; CO2 20; ALK 151; TP 9.1; GLOB 4.9; A/G 0.9. 02/21 16:02 Order name: Lipase; Complete Time: 17:17 02/21 16:02 Order name: Urine Microscopic Only 02/21 17:01 Order name: CBC Smear Scan; Complete Time: 17:17 [place] 02/21 16:02 Order name: Abdomen Limited US: RUQ/epigastric; Complete Time: 18:00 02/21 18:00 Interpretation: Report reviewed. 02/21 16:02 Order name: IV Saline Lock; Complete Time: 16:37 02/21 18:15 Order name: Urine Dipstick-Ancillary [facility] 02/21 18:19 Order name: Urine --Ancillary (enter results) [facility] 02/21 16:02 Order name: Labs collected and sent; Complete Time: 16:37 cp 02/21 16:02 Order name: Urine Dipstick-Ancillary (obtain specimen); Complete Time: 18:27 02/21 16:02 Order name: Urine Test (obtain specimen); Complete Time: 18:27 02/21 16:02 Order name: NPO; Complete Time: 16:37 cp Administered Medications: 14:24 Drug: Zofran (Ondansetron) 4 mg Route: PO; ab2 15:30 Follow up: Response: Nausea is decreased; Vomiting decreased aa5 16:50 Drug: NS 0.9% 1000 ml Route: IV; Rate: 1 bolus; Site: right antecubital; aa5 17:45 Follow up: IV Status: Completed infusion; IV Intake: 1000ml aa5 16:50 Drug: Pepcid (famotidine) 20 mg Route: IVP; Site: right antecubital; aa5 17:00 Follow up: Response: No adverse reaction aa5 18:59 Drug: Potassium Effervescent Tablet 50 mEq Route: PO; aa5 18:59 Follow up: Response: Medication administered at discharge. aa5 Disposition Summary: 02/21/22 18:30 Discharge Ordered Location: Home cp Problem: new cp Symptoms: have improved cp Condition: Stable cp Diagnosis - Nausea with vomiting, unspecified cp - Diarrhea, unspecified cp Followup: cp - With: Private Physician - When: 1 - 2 days - Reason: Worsening of condition Discharge Instructions: - Discharge Summary Sheet cp - Food Choices to Help Relieve Diarrhea, Adult cp - Diarrhea, Adult cp - Nausea and Vomiting, Adult cp Forms: - Medication Reconciliation Form cp - Thank You Letter cp - Antibiotic Education cp - Prescription Opioid Use cp Prescriptions: - promethazine 25 mg Oral Tablet - take 1 tablet by ORAL route every 6 hours As needed; 20 tablet; Refills: 0, cp Product Selection Permitted Signatures: Dispatcher [employer] Ally Fountain RN RN aa5 Lee Shaikh PA PA Travis Alonzo ab2 Corrections: (The following items were deleted from the chart) 17:18 17:18 Normal except: K 3.1; CO2 20; ALK 151; TP 9.1. cp cp
--- NOTE | 2022-02-21 18:31 | ER ---
Nurse's Notes [facility] Name: Maxine Durbin Age: 21 yrs Sex: Female : 2000 Arrival Date: 02/21/2022 Time: 13:20 Bed 15 Private MD: Diagnosis: Nausea with vomiting, unspecified;Diarrhea, unspecified Presentation: 02/21 13:32 Chief complaint: Patient states: "Since 1am I have been not able to eat or drink ab2 anything, I throw it up. I feel so weak and I want to be checked for diabetes." Pt denies any pain. Pt c/o n/v/d. Coronavirus screen: Vaccine status: Patient reports being unvaccinated. Client denies travel out of the [place] in the last 14 days. At this time, the client does not indicate any symptoms associated with coronavirus-19. Ebola Screen: Patient negative for fever greater than or equal to 101.5 degrees Fahrenheit, and additional compatible Ebola Virus Disease symptoms Patient denies exposure to infectious person. Patient denies travel to an Ebola-affected area in the 21 days before illness onset. No symptoms or risks identified at this time. Initial Sepsis Screen: Does the patient meet any 2 criteria? HR > 90 bpm. Does the patient have a suspected source of infection? No. Patient's initial sepsis screen is negative. Initial Sepsis Screen: Does the patient meet any 2 criteria? No. Patient's initial sepsis screen is negative. Risk Assessment: Do you want to hurt yourself or someone else? Patient reports no desire to harm self or others. Onset of symptoms is unknown. 13:32 Method Of Arrival: Ambulatory ab2 13:32 Acuity: GARIMA 3 ab2 Triage Assessment: 13:36 General: Appears in no apparent distress. uncomfortable, Behavior is calm, cooperative, ab2 appropriate for age. Pain: Denies pain. EENT: No deficits noted. No signs and/or symptoms were reported regarding the EENT system. Neuro: Level of Consciousness is awake, alert, obeys commands, Oriented to person, place, time, situation, Appropriate for age Street Commissioner are equal bilaterally Moves all extremities. Gait is steady, Speech is normal. Cardiovascular: No deficits noted. Denies chest pain, shortness of breath, Patient's skin is warm and dry. Respiratory: No deficits noted. Airway is patent Respiratory effort is even, unlabored, Respiratory pattern is regular, symmetrical. GI: Reports diarrhea, intolerance of fluids, intolerance of food, nausea, vomiting. : No deficits noted. No signs and/or symptoms were reported regarding the genitourinary system. 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 - Social history:: Smoking status: Patient denies any tobacco usage or history of. Screenin:30 Abuse screen: Denies threats or abuse. Nutritional screening: No deficits noted. aa5 Tuberculosis screening: No symptoms or risk factors identified. Fall Risk None identified. Assessment: 15:30 General: Appears uncomfortable, Behavior is calm, cooperative. Pain: Complains of pain aa5 in epigastric area Pain currently is 5 out of 10 on a pain scale. Quality of pain is described as aching, Pain began "just a little bit ago" Is continuous. Neuro: Level of Consciousness is awake, alert, obeys commands, Oriented to person, place, time, situation. Cardiovascular: Heart tones S1 S2 present Rhythm is regular. Respiratory: Airway is patent Respiratory effort is even, unlabored, Respiratory pattern is regular, symmetrical. GI: Abdomen is round non-distended, Bowel sounds present X 4 quads. Abd is soft X 4 quads Abdomen is tender to palpation in right upper quadrant Reports diarrhea, nausea, vomiting, since 0100 today. : No signs and/or symptoms were reported regarding the genitourinary system. EENT: No signs and/or symptoms were reported regarding the EENT system. Derm: Skin is pink, warm \\T\\ dry. Musculoskeletal: Range of motion: intact in all extremities. 16:05 Reassessment: Pt ambulatory to restroom, unable to void at this time . aa5 16:59 Reassessment: Patient is alert, oriented x 3, equal unlabored respirations, skin aa5 warm/dry/pink. Pt currently refusing COVID-19 swab. . 17:03 Reassessment: US at bedside . aa5 17:35 Reassessment: Patient is alert, oriented x 3, equal unlabored respirations, skin aa5 warm/dry/pink. Patient states feeling better. Reports nausea has improved. . 18:55 Reassessment: Patient is alert, oriented x 3, equal unlabored respirations, skin aa5 warm/dry/pink. Vital Signs: 13:32 BP 132 / 55; Pulse 113; Resp 19; Temp 98.2(TE); Pulse Ox 100% on R/A; Weight 72.57 kg; ab2 Height 5 ft. 0 in. (152.40 cm); Pain 0/10; 16:00 BP 95 / 67; Pulse 82; Resp 16 S; Pulse Ox 100% on R/A; aa5 17:45 BP 110 / 65; Pulse 80; Resp 16 S; Pulse Ox 99% on R/A; aa5 13:32 Body Mass Index 31.25 (72.57 kg, 152.40 cm) ab2 ED Course: 13:20 Patient arrived in ED. as 13:36 Triage completed. ab2 13:37 Arm band placed on left wrist. ab2 13:53 Lee Shaikh PA is PHCP. cp 13:53 Mitchell Sánchez MD is Attending Physician. cp 15:25 Ally Garrison, BAM is Primary Nurse. aa5 15:30 Patient has correct armband on for positive identification. Bed in low position. Call aa5 light in reach. Side rails up X2. Adult w/ patient. Pulse ox on. NIBP on. 16:04 Initial lab(s) drawn, by me, sent to lab. Inserted saline lock: 20 gauge in right aa5 antecubital area, using aseptic technique. Blood collected. 17:32 Abdomen Limited US: RUQ/epigastric In Process Unspecified. EDMS 17:40 No provider procedures requiring assistance completed. aa5 18:55 IV discontinued, intact, bleeding controlled, No redness/swelling at site. Pressure aa5 dressing applied. Administered Medications: 14:24 Drug: Zofran (Ondansetron) 4 mg Route: PO; ab2 15:30 Follow up: Response: Nausea is decreased; Vomiting decreased aa5 16:50 Drug: NS 0.9% 1000 ml Route: IV; Rate: 1 bolus; Site: right antecubital; aa5 17:45 Follow up: IV Status: Completed infusion; IV Intake: 1000ml aa5 16:50 Drug: Pepcid (famotidine) 20 mg Route: IVP; Site: right antecubital; aa5 17:00 Follow up: Response: No adverse reaction aa5 18:59 Drug: Potassium Effervescent Tablet 50 mEq Route: PO; aa5 18:59 Follow up: Response: Medication administered at discharge. aa5 Intake: 17:45 IV: 1000ml; Total: 1000ml. aa5 Outcome: 18:30 Discharge ordered by . paula 18:55 Discharged to home ambulatory. aa5 18:55 Condition: improved 18:55 Discharge instructions given to patient, Instructed on discharge instructions, follow up and referral plans. medication usage, Demonstrated understanding of instructions, follow-up care, medications, Prescriptions given X 1. 18:59 Patient left the ED. aa5 Signatures: Dispatcher [employer] Emily Venegas Audri, RN RN aa5 Lee Shaikh PA PA cp Bleininger, Alexis ab2
[2022-02-21] MEDS ORDERED: POTASSIUM 25 MEQ EFFERV TAB ONE (18:49)
[2022-02-21 19:29] LABS: Urine Bacteria <20 /HPF (<20); Urine Mucus 2+ /HPF (NONE SEEN)
[2022-02-21 19:49] LABS: Urine Specific Gravity/Preg 1.025 (1.005-1.030)
[2022-02-21 22:18] VITALS: TEMP 98.2; O2SAT 100
[2022-02-21 22:20] VITALS: BP 95/67
== END 2022-02-21 18:59 | disposition home or self-care (01) ==
LOC: ER 13:18
DX: R11.2 Nausea with vomiting, unspecified (principal); R19.7 Diarrhea, unspecified; Z88.0 Allergy status to penicillin
CPT/HCPCS: 36415; 76705; 80053; 81003; 81015; 81025; 83690; 85025; 87086; 87088; 96361; 96374; 99284; J7030

== ENCOUNTER 2023-06-14 00:50 | Emergency (ER) | payer SELFPAY ==
--- OUTSIDE RECORDS SUMMARY | 2023-06-14 01:07 | XMS REPORT | Continuity of Care Document ---
:2000 Author Organization [facility] t Address [address] [place] [address] Care Team Providers Name Role Phone Pcp, Patient Does Not Have A Primary Care Physician [phone] Sergio Suárez DO Attending Clinician Jenni Bernal Attending Clinician [phone] JENNI BOLIVAR Attending Clinician Unavailable Eitan Courtney Attending Clinician EITAN BRIGGS Attending Clinician Unavailable SE ART Attending Clinician Unavailable BHAKTI WILKINSON Attending Clinician Unavailable STEVE SANTIAGO Admitting Clinician Unavailable RAUL MASSEY Admitting Clinician Unavailable Payers Payer Name Policy Type Policy Number Effective Date Expiration Date Dennis rosas [facility] MOM CHIP DEWEY [id number] 2020 LOW FPL 00:00:00 [employer] MOM [id number] 2020 CHIP DEWEY LOW FPL 00:00:00 TITLE V 0-100% [id number] 2013 2013 00:00:00 00:00:00 Problems Condition Condition Condition Status Onset Resolution Last Treating Co mments Source Name Details Category Date Date Treatment Clinician Date COVID-19 COVID-19 Disease Active 2020-0 Unive rs 7-18 ity of 00:00: [address] 32 weeks 32 weeks Disease Active 2020-0 Unive rs gestation gestation 7-18 ity of of of 00:00: [place] 00 [facility] Branch Need for Need for Disease Active Unive rs Tdap Tdap 7-02 ity of vaccinatio vaccinatio 00:00: Sergey gomez n n 00 Medical Branch Obesity Obesity Disease Active 2019- Univers (BMI (BMI 6-28 ity of 30-39.9) 30-39.9) 00:00: [place] 00 Medical Branch Circumvall Circumvall Disease Active 2020-0 U nivers ate ate 4-30 ity of placenta placenta 00:00: [place] during during 00 Medical Bran ch in second in second trimester, trimester, antepartum antepartum Anemia of Anemia of Disease Active Uni vers mother in mother in 4-28 ity of , , 00:00: Sergey gomez antepartum antepartum 00 Me dical Branch Abnormal Abnormal Disease Active Overview: Un aline maternal maternal 4-28 Formattin ity of glucose glucose 00:00: g of this [place] tolerance, tolerance, 00 note Me dical antepartum antepartum might be Branch different from the original. Passed 3hr gtt Supervisio Supervisio Disease Active 2020-0 U nivers n of n of 4-23 ity of high-risk high-risk 00:[place] [facility] with with Branch insufficie insufficie nt nt care care Multiparit Multiparit Disease Active 2020-0 U nivers y y 4-23 ity of 00:00: [place] 00 Medical Branch Obesity in Obesity in Disease Active 2020-0 U nivers 4-23 ity of 00:00: [place] 00 Medical Branch Hx of Hx of Disease Active Univers maternal maternal 7-21 ity of laceration laceration 00:00: [place] , 4th , 4th 00 Medical degree, degree, Branch currently currently , , second second trimester trimester Seizure Seizure Disease Active Univers disorder disorder 6-28 ity of during during 00:00: [place] 00 [facility] in third in third Branch trimester trimester History of History of Disease Active Overview : Univers seizure seizure 4-22 Formattin ity o f 00:00: g of this [place] 00 note Medical might be Branch different from the original. Last seizure x2 years ago, last on meds 5 months ago Allergies, Adverse Reactions, Alerts Allergy Allergy Status Severity Reaction(s) Onset Inactive Treating Comm ents Source Name Type Date Date Clinician AMPICILL DRUG Active Rash Univers IN INGREDI 8 ity of 00:00: [place] 00 Medical Branch Ampicill Propensi Active Rash Univer s in ty to 816 ity of adverse 00:00: [place] reaction 00 Medical s Branch Social History Social Habit Start Date Stop Date Quantity Comments Source Exposure to Not sure [facility]-CoV-2 [place] Medical (event) Branch Alcohol intake 2020-06-08 2020-06-08 Current University of 00:00:00 00:00:00 non-drinker of [facility] alcohol [place] (finding) Tobacco use and 2013-07-02 2013-07-02 Never used Universit y of exposure 00:00:00 00:00:00 [facility] Tobacco Comment 2013-07-02 2013-07-02 no smoke Universit y of 00:00:00 00:00:00 exposure [facility] Sex Assigned At 2000 2000 Universit y of 00:00:00 00:00:00 [facility] Smoking Status Start Date Stop Date Source Never smoker [facility] Medications Ordered Filled Start Stop Current Ordering [...] over 15 Minutes, 100 mL levETIRAcet Yes [id number] 1500mg Take 3 Univers am 500 mg - tablets by ity of tablet 00:00: mouth 2 00 (two) Medical times Branch daily. docusate Yes [id number] 240mg Take 1 U nivers calcium 240 7-21 capsule by it y of mg capsule 00:00: mouth [place] 00 daily as Medical needed for Branch Constipati on. ibuprofen Yes [id number] 600mg Take 1 Univers 600 mg 7-21 tablet by ity of tablet 00:00: mouth [place] 00 every 6 Medical (six) Branch hours as needed for Pain (scale 1-3). simethicone 2019- Yes [id number] 160mg Take 2 Univers 80 mg 7-21 tablets by ity of chewable 00:00: mouth [place] tablet 00 after Medical meals and Branch at bedtime as needed for Gas. 2019- Yes [id number] 1{tbl} Take 1 Univers vitamin 7-21 tablet by ity of w/FA tablet 00:00: mouth [place] 00 daily. Medical Branch ferrous 2019- Yes [id number] 325mg Take 1 Un aline sulfate 325 5-28 tablet by ity of mg (65 mg 00:00: mouth 2 [place] iron) 00 (two) Medical tablet times Branch daily. levETIRAcet 2020- No [id number] 1500mg Take 3 Univers am 500 mg 4-30 09-19 tablets by ity of tablet 00:00: 00:00 mouth 2 [place] 00 :00 (two) Medical times Branch daily. ascorbic Yes [id number] 500mg Take 1 U nivers acid, 4-28 tablet by ity of vitamin C, 00:00: [place] 3 [place] 500 mg 00 (three) Medical tablet times Branch daily. Immunizations Ordered Immunization Filled Immunization Date Status Commen ts Source Name Name [facility] 2020-05-18 Completed University of 00:00:00 [facility] TDAP 2018-03-19 Completed University of 00:00:00 [facility] Influenza Virus 2017-12-25 Completed Universit y of Vaccine Quad IM 3+ 00:00:00 [facility] Influenza Virus 2011-09-02 Completed Universit y of Vaccine - Whole 00:00:00 [facility] ical Branch HPV 2011-09-02 Completed University of 00:00:00 [facility] Meningococcal 2011-05-02 Completed University of Vaccine 00:00:00 [facility] TDAP 2011-05-02 Completed University of 00:00:00 [facility] HPV 2011-05-02 Completed University of 00:00:00 [facility] DTAP 2011-05-02 Completed University of 00:00:00 [facility] HEPATITIS A 2011-02-18 Completed University of 00:00:00 [facility] HPV 2011-02-18 Completed University of 00:00:00 [facility] HEPATITIS A 2007-12-17 Completed University of 00:00:00 [facility] DTAP 2007-12-17 Completed University of 00:00:00 [facility] Polio (IPV/OPV) 2007-12-17 Completed Universit y of 00:00:00 [facility] MMR 2006-08-29 Completed University of 00:00:00 [facility] MMR 2001-03-12 Completed University of 00:00:00 [facility] Polio (IPV/OPV) 2001-02-09 Completed Universit y of 00:00:00 [facility] Hep B, Adol or Pedi 2001-02-09 Completed Unive rsity of Dosage 00:00:00 [facility] Polio (IPV/OPV) 2000 Completed Universit y of 00:00:00 [facility] DTAP 2000 Completed University of 00:00:00 [facility] Hep B, Adol or Pedi 2000 Completed Unive rsity of Dosage 00:00:00 [facility] Polio (IPV/OPV) 2000 Completed Universit y of 00:00:00 [facility] Vital Signs Vital Name Observation Time Observation Value Comments Source Systolic blood 2021-08-05 09:30:00 98 mm[Hg] Univer sity of pressure [facility] Diastolic blood 2021-08-05 09:30:00 57 mm[Hg] Unive rsity of pressure [facility] Heart rate 2021-08-05 09:30:00 80 /min [facility] Respiratory rate 2021-08-05 09:30:00 17 /min [facility] Oxygen saturation in 2021-08-05 09:30:00 98 /min [facility] Arterial blood by [facility] Pulse oximetry [place] Body temperature 2021-08-05 08:44:00 36.67 Glendy [facility] Body height 2021-08-05 08:44:00 152.4 cm [facility] Body weight 2021-08-05 08:44:00 77.111 kg [facility] BMI 2021-08-05 08:44:00 33.20 kg/m2 [facility] Procedures Procedure Date / Time Performed Performing Clinician Sour e COMP. METABOLIC PANEL 2021-08-05 08:59:00 Sergio Suárez [facility] [place] ([id number]) Medical [place] CBC WITH DIFF 2021-08-05 08:59:00 Suárez, [facility] URINALYSIS 2021-08-05 08:59:00 Suárez, [facility] NOTICE OF PRIVACY 2021-08-05 08:38:51 Doctor Unassigned, No Univ [facility] PRACTICES Name Medical Branch CONSENT/REFUSAL FOR 2021-08-05 08:38:28 [facility] Unassigned, [facility] AND Name Medical Branch TREATMENT Encounters Start End Encounter Admission Attending Care Care Encounter Source Date/Time Date/Time Type Type Clinicians Facility Department ID 2021-09-17 Emergency [facility] [id number] Univers 23:40:28 ity of [facility] 2021-09-16 Emergency [facility] [id number] Univers 21:18:55 ity of [facility] 2021-09-16 Emergency [facility] [id number] Univers 21:18:36 ity of [facility] 2021-09-14 Outpatient P [facility] KISHOR [id number] Univers 08:32:37 ity of [facility] 2021-09-14 Emergency [facility] [id number] Univers 08:32:20 ity of [facility] 2021-09-14 Emergency [facility] [id number] Univers 07:28:44 ity of [facility] 2021-09-14 Outpatient P [facility] KISH[facility] [id number] Univers 03:17:06 ity of [facility] 2021-09-14 Emergency [facility] [id number] Univers 03:16:43 ity of [facility] 2021-08-05 2021-08-05 Emergency [facility] [id number] Univers 03:48:00 04:33:00 Sergio Lara [id number] i ty zay Esqueda [id number] [facility] [id number] [facility] 084 Branch 2020-08-14 2020-08-14 Letter María [facility] [id number] 00:00:00 00:00:00 (Out) Jenni C GAS MANAGER [id number] REGIONAL [id number] MATERNAL [id number] & CHILD 107 [facility] 2020-07-17 2020-07-17 Outpatient R MARÍA [facility] [id number] Univers 10:30:00 10:30:00 JENNI ity o f [facility] 2020-07-06 2020-07-06 Telephone [facility] [id number] 00:00:00 00:00:00 Roslauranda R GAS MANAGER [id number] REGIONAL [id number] MATERNAL [id number] & CHILD 107 [facility] 2020-06-12 2020-06-12 Telemedici [facility] [id number] 09:20:08 13:15:48 ne Visit Roslauranda R GAS MANAGER [id number] REGIONAL [id number] MATERNAL [id number] & CHILD 107 [facility] 2020-06-12 2020-06-12 Outpatient [facility] [id number] Univers 09:30:00 09:30:00 ROSLAURANDA ity o f [facility] 2020-06-08 2020-06-08 [facility] [id number] Univers 10:15:00 10:15:00 [facility] 2020-06-01 Outpatient R [facility] [id number] Univers 09:30:00 09[facility]30:[facility] 2020-05-18 2020-05-18 [facility] [id number] Univers 08:15:00 08:15:00 ROSLAURANDA ity o f [facility] 2020-05-11 2020-05-11 Outpatient P [facility] [id number] Univers 14:15:00 14:15:[facility] 2020-05-08 2020-05-08 [facility] [id number] Univers 13:45:00 13:45:00 ROSHUNDA ity o f [facility] 2020-05-04 2020-05-04 Outpatient R [facility] [id number] Univers 08:00:00 08:00:00 ity of [facility] 2020-05-04 2020-05-04 Outpatient R [facility] [id number] Univers 08:00:00 08:00:00 ity [facility] 2020-04-13 2020-04-13 Outpatient R [facility] [id number] Univers 10:00:00 10:00:00 ity [facility] 2020-03-17 2020-03-17 Outpatient R [facility] [id number] Univers 07:45:00 07:45:00 ity [facility] 2020-03-16 2020-03-16 Outpatient R [facility] [id number] Univers 09:00:00 [facility] 2020-[facility]-10 2020-03-10 Outpatient P [facility] [id number] Univers 13:00:00 [facility]:00:[facility] Outpatient R AKINSIVALDEMAR, [facility] [id number] Univers 08:15:00 08:15:00 JENNI ity o f [facility] 2013-07-02 2013-07-02 Outpatient R MINH, [facility] [id number] Univers 11:00:00 12:37:11 BHAKTI [facility] Results Test Description Test Time Test Comments Results Result Comments Source COMP. METABOLIC PANEL (19828) 2021-08-05 09:21:32 Test Item Value Reference Range Interpretation Comme nts NA (test code = 7126002327) 138 mmol/L 135-145 K (test code = 1276928635) 3.4 mmol/L 3.5-5.0 L CL (test code = 1153796521) 106 mmol/L 98-108 CO2 TOTAL (test code = 4053514456) 24 mmol/L 23-31 AGAP (test code = 4430505187) 2-16 BUN (test code = 8003464466) 16 mg/dL 7-23 GLUCOSE (test code = 9304339166) 72 mg/dL 70-110 CREATININE (test code = 0.55 mg/dL 0.50-1.04 7449789087) TOTAL BILI (test code = 0.4 mg/dL 0.1-1.4 6013722265) CALCIUM (test code = 9939127766) 8.9 mg/dL 8.6-10.6 T PROTEIN (test code = 3177447998) 7.7 g/dL 6.3-8.2 ALBUMIN (test code = 6062277807) 4.4 g/dL 3.5-5.0 ALK PHOS (test code = 1105744287) 105 U/L 34-122 ALTv (test code = 1742-6) 10 U/L 5-35 AST(SGOT) (test code = 0194910513) 19 U/L 13-40 eGFR (test code = 3050990534) mL/min/1.73m2 MURRAY (test code = MURRAY) Association [...] tests). Lab Interpretation (test code = Abnormal 15204-4) [facility] WITH [id number] 09:09:52 Test Item Value Reference Range Interpretation [...] RDW-SD (test code = 40.9 fL 39.0-49.9 29295-1) RDW-CV (test code = 15.7 % 12.0-15.5 H 788-0) PLT (test code = See_Comment H [Automated 777-3) message] The sy stem which generated this result transmitted reference range : 166 - 358 10*3/ ?L. The reference r venus was not used to interpret this result as normal/abnormal . MPV (test code = 9.3 fL 9.5-12.9 L 92309-6) NRBC/100 WBC (test See_Comment [Automat ed code = 7133187875) message] The system which generated this result transmitted reference range : 0.0 - 10.0 /100 WBCs. The refer ence range was not u sed to interpret th is result as normal/abnormal . NRBC x10^3 (test code <0.01 See_Comment [Auto mated = 4800828982) message] The s ystem which generated this result transmitted reference range : 10*3/?L. The reference range was not used to interpret this result as normal/abnormal . GRAN MAT (NEUT) % 67.6 % (test code = 770-8) IMM GRAN % (test code 0.20 % = 1376967346) LYMPH % (test code = 23.6 % 736-9) MONO % (test code = 6.5 % 5905-5) EOS % (test code = 1.7 % 713-8) BASO % (test code = 0.4 % 706-2) GRAN MAT x10^3(ANC) 6.30 10*3/uL 1.88-7.09 (test code = 7167320996) IMM GRAN x10^3 (test <0.03 0.00-0.06 code = 7237042410) LYMPH x10^3 (test code 2.20 10*3/uL 1.32-3.29 = 731-0) MONO x10^3 (test code 0.61 10*3/uL 0.33-0.92 = 742-7) EOS x10^3 (test code = 0.16 10*3/uL 0.03-0.39 711-2) BASO x10^3 (test code 0.04 10*3/uL 0.01-0.07 = 704-7) Lab Interpretation Abnormal (test code = 96520-5) [facility]"
[2023-06-14] MEDS ORDERED: NA CHLORIDE 0.9% 100 ML ONE (01:26)
[2023-06-14] MEDS ORDERED: LEVETIRACETAM 500 MG/5 ML VIAL IV ONE ×2 (01:26→01:32)
--- NOTE | 2023-06-14 01:45 | ER ---
Nurse's Notes [facility] Name: Maxine Durbin Age: 23 yrs Sex: Female : 2000 Arrival Date: 06/14/2023 Time: 00:50 Bed 19 Private MD: Diagnosis: Epilepsy, unspecified, not intractable, without status epilepticus Presentation: 06/14 01:16 Chief complaint: EMS states: She has a history of seizures and hasn't taken her Keppra vc1 in about 3 months. She said she always gets tremors and really cold before she has a seizure and she has felt like that all day and now she has an aura. Coronavirus screen: Vaccine status: Patient reports being unvaccinated. Client denies travel out of the [place] in the last 14 days. At this time, the client does not indicate any symptoms associated with coronavirus-19. Ebola Screen: Patient negative for fever greater than or equal to 101.5 degrees Fahrenheit, and additional compatible Ebola Virus Disease symptoms Patient denies exposure to infectious person. Patient denies travel to an Ebola-affected area in the 21 days before illness onset. No symptoms or risks identified at this time. Initial Sepsis Screen: Does the patient meet any 2 criteria? No. Patient's initial sepsis screen is negative. Does the patient have a suspected source of infection? No. Patient's initial sepsis screen is negative. Risk Assessment: Do you want to hurt yourself or someone else? Patient reports no desire to harm self or others. Onset of symptoms was June 13, 2023. 01:16 Method Of Arrival: EMS: [facility] vc1 01:16 Acuity: GARIMA 4 vc1 Triage Assessment: 01:21 General: Appears in no apparent distress. comfortable, Behavior is calm, cooperative, vc1 appropriate for age. Pain: Denies pain. EENT: No deficits noted. No signs and/or symptoms were reported regarding the EENT system. Neuro: Level of Consciousness is awake, alert, obeys commands, Oriented to person, place, time, situation, Appropriate for age Seizure activity pt has aura. Cardiovascular: No deficits noted. Respiratory: Airway is patent Respiratory effort is even, unlabored, Respiratory pattern is regular, symmetrical. GI: No deficits noted. No signs and/or symptoms were reported involving the gastrointestinal system. : No deficits noted. No signs and/or symptoms were reported regarding the genitourinary system. Derm: No deficits noted. No signs and/or symptoms reported regarding the dermatologic system. Musculoskeletal: No deficits noted. No signs and/or symptoms reported regarding the musculoskeletal system. 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 - Social history:: Smoking status: Patient denies any tobacco usage or history of. - Family history:: not pertinent. Screenin:21 [facility] ED Fall Risk Assessment (Adult) History of falling in the last 3 months, vc1 including since admission No falls in past 3 months (0 pts) Confusion or Disorientation No (0 pts) Intoxicated or Sedated No (0 pts) Impaired Gait No (0 pts) Mobility Assist Device Used No (0 pt) Altered Elimination No (0 pt) Score/Fall Risk Level 0 - 2 = Low Risk Oriented to surroundings, Maintained a safe environment, Educated pt \T\ family on fall prevention, incl call for assistance when getting out of bed. Abuse screen: Denies threats or abuse. Nutritional screening: No deficits noted. Tuberculosis screening: No symptoms or risk factors identified. Assessment: 01:12 General: Appears comfortable, Behavior is calm, cooperative. Pain: Denies pain. Neuro: ha1 Level of Consciousness is awake, alert, obeys commands, Oriented to person, place, time, situation. Neuro: Reports seizure activity at home. Cardiovascular: Patient's skin is warm and dry. Respiratory: Airway is patent Respiratory effort is even, unlabored, Respiratory pattern is regular, symmetrical. GI: Abdomen is flat, non-distended. Derm: Skin is pink, warm \T\ dry. Musculoskeletal: Circulation, motion, and sensation intact. Range of motion: intact in all extremities. 02:06 Reassessment: Patient and/or family updated on plan of care and expected duration. Pain vc1 level reassessed. Patient is alert, oriented x 3, equal unlabored respirations, skin warm/dry/pink. Patient states feeling better. Patient states symptoms have improved. Vital Signs: 01:16 BP 119 / 63; Pulse 89; Resp 17; Temp 98.3; Pulse Ox 100% ; Weight 72.57 kg; Height 5 vc1 ft. 0 in. ; Pain 0/10; 01:26 BP 110 / 64; Pulse 85; Resp 18 S; Pulse Ox 100% on R/A; ha1 02:06 BP 110 / 71; Pulse 74; Resp 16; Pulse Ox 99% ; vc1 01:16 Body Mass Index 31.25 (72.57 kg, 152.4 cm) vc1 01:16 Pain Scale: Adult vc1 ED Course: 01:12 Patient arrived in ED. ha1 01:12 Mc Shah MD is Attending Physician. rt 01:14 Elida Craig RN is Primary Nurse. ha1 01:19 Triage completed. vc1 01:21 Arm band placed on left wrist. vc1 01:22 Patient has correct armband on for positive identification. Bed in low position. Call vc1 light in reach. Pulse ox on. NIBP on. 01:45 Cesar Tafoya MD is Referral Physician. rt 02:07 No provider procedures requiring assistance completed. IV discontinued, intact, vc1 bleeding controlled, No redness/swelling at site. Pressure dressing applied. 02:08 Provided Education on: Take prescribed medication. vc1 Administered Medications: 01:22 Drug: Keppra IV 2000 mg Route: IV; Rate: calculated rate; Site: right antecubital; ha1 02:09 Follow up: IV Status: Completed infusion; IV Intake: 100ml vc1 Medication: 01:22 VIS not applicable for this client. vc1 Intake: 02:09 IV: 100ml; Total: 100ml. vc1 Outcome: 01:45 Discharge ordered by MD. rt 02:07 Discharged to home ambulatory, with family. vc1 02:07 Condition: good 02:07 Discharge instructions given to patient, Instructed on discharge instructions, follow up and referral plans. medication usage, Demonstrated understanding of instructions, follow-up care, medications, Prescriptions given X 1. 02:09 Patient left the ED. vc1 Signatures: Lyndsey Balderas RN RN 1 Elida Craig RN RN ha1 Mc Shah MD MD rt
--- NOTE | 2023-06-14 01:45 | EDPHYS ---
Physician Documentation [facility] Name: Mxaine Durbin Age: 23 yrs Sex: Female : 2000 Arrival Date: 06/14/2023 Time: 00:50 Bed 19 Private MD: ED Physician Mc Shah HPI: 06/14 02:13 This 23 yrs old Female presents to ER via EMS with complaints of Epilepsy. rt 02:13 Patient with history of epilepsy reports to the ED with a tremor which she states is an rt aura for possible seizures. She has not been on her Keppra for several months due to not having a doctor to write them for her. She states that she has last had a seizure about 4 years ago, was previously well controlled on 1500 mg of Keppra twice daily. Denies other acute complaints at this time, symptoms are mild in severity, no other aggravating alleviating factors.. 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 - Social history:: Smoking status: Patient denies any tobacco usage or history of. - Family history:: not pertinent. ROS: 02:13 Constitutional: Negative for fever, chills, and weight loss, Cardiovascular: Negative rt for chest pain, palpitations, and edema, Respiratory: Negative for shortness of breath, cough, wheezing, and pleuritic chest pain, Abdomen/GI: Negative for abdominal pain, nausea, vomiting, diarrhea, and constipation, Back: Negative for injury and pain, MS/Extremity: Negative for injury and deformity, Skin: Negative for injury, rash, and discoloration, Neuro: Negative for headache, weakness, numbness, tingling, and seizure, Psych: Negative for depression, anxiety, suicide ideation, homicidal ideation, and hallucinations. Exam: 02:13 Constitutional: This is a well developed, well nourished patient who is awake, alert, rt and in no acute distress. Head/Face: Normocephalic, atraumatic. Chest/axilla: Normal chest wall appearance and motion. Nontender with no deformity. No lesions are appreciated. Cardiovascular: Regular rate and rhythm with a normal S1 and S2. No gallops, murmurs, or rubs. Normal PMI, no JVD. No pulse deficits. Respiratory: Lungs have equal breath sounds bilaterally, clear to auscultation and percussion. No rales, rhonchi or wheezes noted. No increased work of breathing, no retractions or nasal flaring. Abdomen/GI: Soft, non-tender, with normal bowel sounds. No distension or tympany. No guarding or rebound. No evidence of tenderness throughout. Skin: Warm, dry with normal turgor. Normal color with no rashes, no lesions, and no evidence of cellulitis. MS/ Extremity: Pulses equal, no cyanosis. Neurovascular intact. Full, normal range of motion. Neuro: Awake and alert, GCS 15, oriented to person, place, time, and situation. Cranial nerves II-XII grossly intact. Motor strength 5/5 in all extremities. Sensory grossly intact. Cerebellar exam normal. Normal gait. Psych: Awake, alert, with orientation to person, place and time. Behavior, mood, and affect are within normal limits. Vital Signs: 01:16 BP 119 / 63; Pulse 89; Resp 17; Temp 98.3; Pulse Ox 100% ; Weight 72.57 kg; Height 5 vc1 ft. 0 in. ; Pain 0/10; 01:26 BP 110 / 64; Pulse 85; Resp 18 S; Pulse Ox 100% on R/A; ha1 02:06 BP 110 / 71; Pulse 74; Resp 16; Pulse Ox 99% ; vc1 01:16 Body Mass Index 31.25 (72.57 kg, 152.4 cm) vc1 01:16 Pain Scale: Adult vc1 MDM: 01:12 Patient medically screened. rt 02:13 Differential Diagnosis Epilepsy, aura. Data reviewed: vital signs, nurses notes. Test rt considered but Not performed: Labs: Patient has not had a seizure today, labs are benign, no other focality to her complaints. Labs and imaging are not indicated. Counseling: I had a detailed discussion with the patient and/or guardian regarding: the historical points, exam findings, and any diagnostic results supporting the discharge/admit diagnosis, the need for outpatient follow up. ED course: Patient with stable vital signs, benign examination, believe the patient only needs to get reinitiated on her Keppra. Patient is in agreement with this plan, will load with Keppra, prescribed within a 30-day supply. She is instructed to follow-up as an outpatient.. Administered Medications: 01:22 Drug: Keppra IV 2000 mg Route: IV; Rate: calculated rate; Site: right antecubital; ha 02:09 Follow up: IV Status: Completed infusion; IV Intake: 100ml vc1 Disposition Summary: 06/14/23 01:45 Discharge Ordered Location: Home rt Problem: an ongoing problem rt Symptoms: have improved rt Condition: Stable rt Diagnosis - Epilepsy, unspecified, not intractable, without status epilepticus rt Followup: rt - With: Cesar Tafoya MD - When: 7 - 10 days - Reason: Discharge Instructions: - Discharge Summary Sheet rt - Epilepsy rt Forms: - Medication Reconciliation Form rt - Thank You Letter rt - Antibiotic Education rt - Prescription Opioid Use rt - Patient Portal Instructions rt Prescriptions: - Keppra 750 mg Oral tablet - take 2 tablet by ORAL route 2 times per day; 120 tablet; Refills: 0, Product rt Selection Permitted Signatures: Lyndsey Balderas RN RN vc1 Elida Craig RN RN ha1 Mc Shah MD MD rt
[2023-06-14 02:24] VITALS: TEMP 98.3
[2023-06-14 02:26] VITALS: BP 110/71; O2SAT 99
== END 2023-06-14 02:09 | disposition home or self-care (01) ==
LOC: ER 00:50
DX: G40.909 Epilepsy, unspecified, not intractable, without status epilepticus (principal); Z88.0 Allergy status to penicillin
CPT/HCPCS: 96365; 99284; J1953

== ENCOUNTER → 2024-02-11 | Emergency (ER) | payer SELFPAY ==
[~2024-02-11] MED LIST: ACETAMINOPHEN 325 MG TABLET ONE; LEVETIRACETAM 500 MG/5 ML VIAL IV ONE; NA CHLORIDE 0.9% 100 ML ONE
--- OUTSIDE RECORDS SUMMARY | 2024-02-11 07:51 | XMS REPORT | Continuity of Care Document ---
Author Name Unknown Address [address] [place] [address] [facility] thconnect Address 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 Role Phone Pcp, Patient Does Not Have A Primary Care Physic sushant Sergio Suárez DO Attending Clinician [phone] Jenni Bernal Attending Clinician + JENNI BOLIVAR Attending Clinician Unavail able Eitan Courtney Attending Clinician [phone] EITAN LOREDO Attending Clinician Unavailab SE Styles Attending Clinician Unavaila BHAKTI Elizondo Attending Clinician Unavailable STEVE SANTIAGO Admitting Clinician Unavailable RAUL MASSEY Admitting Clinician Unavailchristi e Payers Payer Name Policy Type Policy Number Effective Date Expirati on Date Source [employer] [employer] [id number] 2020 00:00:00 [employer] [id number] 2020 00:00:00 TITLE V 0-100% [id number] 2013 00:00:00 2013 00:00:00 Problems Condition Name Condition Details Condition Category Status Onset Date Resolution Date Last Treatment Date Treating Clinician Comments Source COVID-19 COVID-19 Disease Active 06-03 00:00: 00 [facility] 32 weeks gestation of 32 weeks gestation of Disease Active 7-18 00:00: 00 [facility] Need for Tdap vaccinatio n Need for Tdap vaccinatio n Disease Active 7-02 00:00: 00 [facility] Obesity (BMI 30-39.9) Obesity (BMI 30-39.9) Disease Active 6-28 00:00: 00 [facility] Circumvall ate placenta during in second trimester, antepartum Circumvall ate placenta during in second trimester, antepartum Disease Active 430 00:00: 00 [facility] Anemia of mother in , antepartum Anemia of mother in , antepartum Disease Active 428 00:00: 00 [facility] Abnormal maternal glucose tolerance, antepartum Abnormal maternal glucose tolerance, antepartum Disease Active 03-14 00:00: 00 Overview: Formattin g of this note might be different from the original. Passed 3hr gtt [facility] Supervisio n of high-risk with insufficie nt care Supervisio n of high-risk with insufficie nt care Disease Active 423 00:00: 00 [facility] Multiparit y Multiparit y Disease Active 423 00:00: 00 [facility] Obesity in Obesity in Disease Active 423 00:00: 00 [facility] Hx of maternal laceration , 4th degree, currently , second trimester Hx of maternal laceration , 4th degree, currently , second trimester Disease Active 7 00:00: 00 [facility] Seizure disorder during in third trimester Seizure disorder during in third trimester Disease Active 05-14 00:00: 00 [facility] History of seizure History of seizure Disease Active 422 00:00: 00 Overview: Formattin g of this note might be different from the original. Last seizure x2 years ago, last on meds 5 months ago [facility] Allergies, Adverse Reactions, Alerts Allergy Name Allergy Type Status Severity Reaction(s) Onset Date Inactive Date Treating Clinician Comments Source ELANICILL IN DRUG INGREDI Active Rash 07-02 00:00: 00 [facility] Ampicill in Propensi ty to adverse reaction s Active Rash 07-02 00:00: 00 [facility] Social History Social Habit Start Date Stop Date Quantity Comments Source Exposure to SARS-CoV-2 (event) Not sure [facility] Alcohol intake 2020-06-08 00:00:00 2020-06-08 00:00:00 Current non-drinker of alcohol (finding) [facility] Tobacco use and exposure 2013-07-02 00:00:00 2013-07-02 00:00:00 Never used [facility] Tobacco Comment 2013-07-02 00:00:00 2013-07-02 00:00:00 no smoke exposure [facility] Sex Assigned At 2000 00:00:00 2000 00:00:00 [facility] Smoking Status Start Date Stop Date Source Never smoker [facility] Medications Ordered Medication Name Filled Medication Name Start Date Stop Date Current Medication? Ordering Clinician Indication Dosage Frequency Signature (SIG) Comments Components Source levETIRAcet am (KEPPRA) in NACL (ISO-OS) 1,500 mg/100 mL RTU 08-05 10:00: 00 08-05 09:16 :00 No 1500mg 1,500 mg, IV Infusion, ONCE, 1 dose, On 08/05/21 at 0500, Administer over 15 Minutes, 100 mL [facility] levETIRAcet am 500 mg tablet 08-05 00:00: 00 Yes [id number] 1500mg Take 3 tablets by mouth 2 (two) times daily. [facility] docusate calcium 240 mg capsule 06-06 00:00: 00 Yes [id number] 240mg Take 1 capsule by mouth once daily as needed for Constipati on. [facility] ibuprofen 600 mg tablet 06-06 00:00: 00 Yes [id number] 600mg Take 1 tablet by mouth every 6 (six) hours as needed for Pain (scale 1-3). [facility] simethicone 80 mg chewable tablet 06-06 00:00: 00 Yes [id number] 160mg Take 2 tablets by mouth after meals and at bedtime as needed for Gas. [facility] vitamin w/FA tablet 06-06 00:00: 00 Yes [id number] 1{tbl} Take 1 tablet by mouth daily. [facility] ferrous sulfate 325 mg (65 mg iron) tablet 04-13 00:00: 00 Yes [id number] 325mg Take 1 tablet by mouth 2 (two) times daily. [facility] levETIRAcet am 500 mg tablet 03-16 00:00: 00 08-05 00:00 :00 No [id number] 1500mg Take 3 tablets by mouth 2 (two) times daily. [facility] ascorbic acid, vitamin C, 500 mg tablet 03-14 00:00: 00 Yes [id number] 500mg Take 1 tablet by mouth 3 (three) times daily. [facility] Vital Signs Vital Name Observation Time Observation Value Comments S our Systolic blood pressure 2021-08-05 09:30:00 98 mm[Hg] [facility] Diastolic blood pressure 2021-08-05 09:30:00 57 mm[Hg] [facility] Heart rate 2021-08-05 09:30:00 80 /min [facility] Respiratory rate 2021-08-05 09:30:00 17 /min [facility] Oxygen saturation in Arterial blood by Pulse oximetry 2021-08-05 09:30:00 98 /min [facility] Body temperature 2021-08-05 08:44:00 36.67 [place]y [facility] Body height 2021-08-05 08:44:00 152.4 cm [facility] Body weight 2021-08-05 08:44:00 77.111 kg [facility] BMI 2021-08-05 08:44:00 33.20 kg/m2 [facility] Procedures Procedure Date / Time Performed Performing Clinicia n Source COMP. METABOLIC PANEL (67312) 2021-08-05 08:59:00 Sergio Suárez [facility] CBC WITH DIFF 2021-08-05 08:59:00 Sergio Suárez [facility] URINALYSIS 2021-08-05 08:59:00 Sergio Suárez [facility] NOTICE OF PRIVACY PRACTICES 2021-08-05 08:38:51 Doctor Unassigned, [place] [facility] CONSENT/REFUSAL FOR DIAGNOSIS AND TREATMENT 2021-08-05 08:38:28 Doctor Unassigned, [place] [facility] Encounters Start Date/Time End Date/Time Encounter Type Admission Type Attending [facility] Care Facility Care Department Encounter ID Source 2021-09-17 23:40:28 Emergency [facility] [id number] [facility] 2021-09-16 21:18:55 Emergency [facility] [id number] [facility] 2021-09-16 21:18:36 Emergency [facility] [id number] [facility] 2021-09-14 08:32:37 Outpatient P [facility] [id number] [facility] 2021-09-14 08:32:20 Emergency [facility] [id number] [facility] 2021-09-14 07:28:44 Emergency [facility] [id number] [facility] 2021-09-14 03:17:06 Outpatient P [facility] [id number] [facility] 2021-09-14 03:16:43 Emergency [facility] [id number] [facility] 2021-08-05 03:48:00 2021-08-05 04:33:00 Emergency Sergio Suárez [facility] ..[id number] [facility] 2020-08-14 00:00:00 2020-08-14 00:00:00 Letter (Out) Jenni Bolivar [facility] PHARMACEUTICAL SPECIALTY REPRESENTATIVE [facility]NAL & CHILD HEALTH [facility] 1..[id number] 2020-07-17 10:30:00 2020-07-17 10:30:00 Outpatient R JENNI BOLIVAR [facility] [id number] [facility] 2020-07-06 00:00:00 2020-07-06 00:00:00 Telephone Eitan Loredo [facility] PHARMACEUTICAL SPECIALTY REPRESENTATIVE [facility] MATERNAL & CHILD [facility] [id number] 2020-06-12 09:20:08 2020-06-12 13:15:48 Telemedici ne Visit Eitan Loredo [facility] PHARMACEUTICAL SPECIALTY REPRESENTATIVE [facility] & CHILD [facility] [id number] 2020-06-12 09:30:00 2020-06-12 09:30:00 Outpatient R EITAN LOREDO [facility] [id number] [facility] 2020-06-08 10:15:00 2020-06-08 10:15:00 Outpatient P SE ART [facility] [id number] [facility] 2020-06-01 09:30:00 2020-06-01 09:30:00 Outpatient R [facility] [id number] [facility] 2020-05-18 08:15:00 2020-05-18 08:15:00 Outpatient R EITAN LOREDO [facility] [id number] [facility] 2020-05-11 14:15:00 2020-05-11 14:15:00 Outpatient P [facility] [id number] [facility] 2020-05-08 13:45:00 2020-05-08 13:45:00 Outpatient R EITAN LOREDO [facility] [id number] [facility] 2020-05-04 08:00:00 2020-05-04 08:00:00 Outpatient R [facility] [id number] [facility] 2020-05-04 08:00:00 2020-05-04 08:00:00 Outpatient R [facility] [id number] [facility] 2020-04-13 10:00:00 2020-04-13 10:00:00 Outpatient R [facility] [id number] [facility] 2020-03-17 07:45:00 2020-03-17 07:45:00 Outpatient R [facility] [id number] [facility] 2020-03-16 09:00:00 2020-03-16 09:00:00 Outpatient R [facility] [id number] [facility] 2020-03-10 13:00:00 2020-03-10 13:00:00 Outpatient P [facility] [id number] [facility] 2020 08:15:00 2020 08:15:00 Outpatient R JENNI BOLIVAR [facility] [id number] [facility] 2013-07-02 11:00:00 2013-07-02 12:37:11 Outpatient R MINHBHAKTI [facility] [id number] [facility] Results Test Description Test Time Test Comments Results Result Co mments Source [facility] WITH [id number] 09:09:52* Test Item Value Reference Range Interpretation Comme nts WBC (test code = 6690-2) See_Comment [Automated messa ge] The system which generated this result transmitted reference range: 4.30 - 11.10 10*3/?L. The reference range was not used to interpret this result as normal/abnormal. RBC (test code = 789-8) See_Comment [Automated messa ge] The system which generated this result transmitted reference range: 3.93 - 5.25 10*6/?L. The reference range was not used to interpret this result as normal/abnormal. HGB (test code = 718-7) 10.3 g/dL 11.6-15.0 L HCT (test code = 4544-3) 33.1 % 35.7-45.2 L MCV (test code = 787-2) 72.7 fL 80.6-95.5 L MCH (test code = 785-6) 22.6 pg 25.9-32.8 L MCHC (test code = 786-4) 31.1 g/dL 31.6-35.1 L RDW-SD (test code = 79622-1) 40.9 fL 39.0-49.9 RDW-CV (test code = 788-0) 15.7 % 12.0-15.5 H PLT (test code = 777-3) See_Comment H [Automated messa ge] The system which generated this result transmitted reference range: 166 - 358 10*3/?L. The reference range was not used to interpret this result as normal/abnormal. MPV (test code = 83084-6) 9.3 fL 9.5-12.9 L NRBC/100 WBC (test code = 3557229925) See_Comment [Automated me ssage] The system which generated this result transmitted reference range: 0.0 - 10.0 /100 WBCs. The reference range was not used to interpret this result as normal/abnormal. NRBC x10^3 (test code = 3674064248) <0.01 See_Comment [Automated messa ge] The system which generated this result transmitted reference range: 10*3/?L. The reference range was not used to interpret this result as normal/abnormal. GRAN MAT (NEUT) % (test code = 770-8) 67.6 % IMM GRAN % (test code = 2682685806) 0.20 % LYMPH % (test code = 736-9) 23.6 % MONO % (test code = 5905-5) 6.5 % EOS % (test code = 713-8) 1.7 % BASO % (test code = 706-2) 0.4 % GRAN MAT x10^3(ANC) (test code = 6085859987) 6.30 10*3/uL 1.88-7.09 IMM GRAN x10^3 (test code = 0230656862) <0.03 0.00-0.06 LYMPH x10^3 (test code = 731-0) 2.20 10*3/uL 1.32-3.29 MONO x10^3 (test code = 742-7) 0.61 10*3/uL 0.33-0.92 EOS x10^3 (test code = 711-2) 0.16 10*3/uL 0.03-0.39 BASO x10^3 (test code = 704-7) 0.04 10*3/uL 0.01-0.07 Lab Interpretation (test code = 44884-6) Abnormal [facility]
[2024-02-11 08:20] LABS: Specific Gravity 1.023 (1.005-1.030); Urine Bilirubin NEGATIVE (Negative); Urine Blood Negative (Negative); Urine Clarity Clear (Clear); Urine Color Light-Yellow (Yellow); Urine Glucose NEGATIVE (Negative); Urine Ketones NEGATIVE (Negative); Urine Microscopic Reflex YN NO UMIC; Urine Nitrite NEGATIVE (Negative); Urine Protein NEGATIVE (Negative); Urine Urobilinogen Normal (Normal); Urine pH 6.5 (5.0-7.0)
[2024-02-11 08:22] LABS: Absolute Eosinophils 0.1 K/uL (0-0.5); Absolute Monocytes 0.6 K/uL (0.1-1.3); Absolute Neutrophil 4.7 K/uL (1.8-8.0); Basophils % 0.5 % (0-1.3); Eosinophils % 1.7 % (0-4.4); Hematocrit 34.7 % (36.0-45.0); Hemoglobin 11.4 g/dL (12.0-15.0); Lymphocytes % 26.5 % (15.3-44.8); MCH 25.4 pg (27.0-35.0); MCHC 32.8 g/dL (32.0-36.0); MCV 77.5 fL (80-100); MPV 7.5 fL (7.6-11.3); Monocytes % 7.5 % (3.3-12.3); Neutrophils % 63.8 % (41.7-73.7); Platelets 338 thou/uL (152-406); RBC Red Blood Cell Count 4.48 M/uL (3.86-4.86); Red Cell Distribution Width 15.9 % (12.1-15.2)
[2024-02-11 08:24] LABS: Specific Gravity 1.023 (1.005-1.030)
[2024-02-11 08:31] LABS: Anion Gap 9.7 mEq/L (5.0-15.0); Potassium 3.7 mEq/L (3.5-5.1)
--- NOTE | 2024-02-11 10:20 | EDPHYS ---
Physician Documentation [facility] Name: Maxine Durbin Age: 23 yrs Sex: Female : 2000 Arrival Date: 02/11/2024 Time: 07:48 Bed 19 Private MD: ED Physician Tramaine Whitney HPI: 02/10 08:04 This 23 yrs old Female presents to ER via EMS with complaints of Seizure. rn 08:04 The patient presents after having a single isolated seizure. Seizure onset: just prior rn to arrival. Associated injury: The patient did not suffer any apparent associated injury. Current symptoms: Generalized weakness. The patient has experienced similar episodes in the past. EMS brings patient in for possible seizure. EMS did not witness seizure. EMS denies postictal period. Patient reports has been off of her Keppra for some time as her seizures had slowed down. Has not had a seizure in several months. No head injury. No trauma after seizure. Patient denies recent illness. No drug use. Denies . Patient states that this feels like her previous seizures.. 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 - Family history:: not pertinent. - Social history:: Smoking status: unknown. - Hospitalizations: : No recent hospitalization is reported. ROS: 08:04 Constitutional: Negative for fever, chills, and weight loss, Neck: Negative for injury, rn pain, and swelling, Cardiovascular: Negative for chest pain, palpitations, and edema, Respiratory: Negative for shortness of breath, cough, wheezing, and pleuritic chest pain, Abdomen/GI: Negative for abdominal pain, nausea, vomiting, diarrhea, and constipation, Back: Negative for injury and pain, : Negative for injury, bleeding, discharge, and swelling, MS/Extremity: Negative for injury and deformity, Skin: Negative for injury, rash, and discoloration, Neuro: Positive for seizure and generalized weakness. Exam: 08:04 Constitutional: This is a well developed, well nourished patient who is awake, alert, rn and in no acute distress. Head/Face: Normocephalic, atraumatic. Eyes: Pupils equal round and reactive to light, extra-ocular motions intact. Lids and lashes normal. Conjunctiva and sclera are non-icteric and not injected. Cornea within normal limits. Periorbital areas with no swelling, redness, or edema. ENT: No tongue laceration, no stridor Neck: Trachea midline, no masses palpated, and no cervical lymphadenopathy. Supple, full range of motion without nuchal rigidity, or vertebral point tenderness. No Meningismus. Cardiovascular: Regular rate and rhythm. No pulse deficits. Respiratory: No increased work of breathing, no retractions or nasal flaring. Abdomen/GI: Soft, non-tender Skin: Warm, dry MS/ Extremity: Pulses equal, no cyanosis. Neuro: Awake and alert, GCS 15, oriented to person, place, time, and situation. Cranial nerves II-XII grossly intact. Motor strength 5/5 in all extremities. Sensory grossly intact. Cerebellar exam normal. Vital Signs: 07:53 BP 99 / 61; Pulse 70; Resp 16; Temp 97.9; Pulse Ox 100% on R/A; iw 08:44 BP 101 / 68; Pulse 62; Resp 17; Pulse Ox 100% on R/A; ll1 10:33 BP 111 / 61; Pulse 61; Resp 17; Pulse Ox 100% ; Pain 0/10; ll1 10:33 Pain Scale: Adult ll1 Rory Coma Score: 10:33 Eye Response: spontaneous(4). Motor Response: obeys commands(6). Verbal Response: ll1 oriented(5). Total: 15. MDM: 07:55 Patient medically screened. rn 10:19 Differential diagnosis: seizure. Data reviewed: vital signs, nurses notes, lab test rn result(s), and as a result, I will discharge patient. Counseling: I had a detailed discussion with the patient and/or guardian regarding the historical points, exam findings, and any diagnostic results supporting the discharge/admit diagnosis, lab results, the need for outpatient follow up, to return to the emergency department if symptoms worsen or persist or if there are any questions or concerns that arise at home. Response to treatment: the patient's symptoms have markedly improved after treatment, the patient's symptoms have resolved after treatment, and as a result, I will discharge patient. Special discussion: I discussed with the patient/guardian in detail that at this point there is no indication for admission to the hospital. It is understood, however, that if the symptoms persist or worsen the patient needs to return immediately for re-evaluation. Based on the history and exam findings, there is no indication for further emergent testing or inpatient evaluation. I discussed with the patient/guardian the need to see the neurologist for further evaluation of the symptoms. 02/10 07:56 Order name: CBC with Diff; Complete Time: 08:33 rn 02/10 07:56 Order name: Basic Metabolic Panel; Complete Time: 08:33 rn 02/10 07:56 Order name: Test, Urine; Complete Time: 08:33 rn 02/10 07:56 Order name: Urinalysis w/ reflexes; Complete Time: 08:33 rn 02/10 07:56 Order name: IV Start; Complete Time: 08:13 rn Administered Medications: 09:01 Drug: Keppra IV 1000 mg IV at calculated rate once Route: IV; Rate: calculated rate; jl7 Site: left antecubital; 10:00 Follow up: Response: No adverse reaction; IV Status: Completed infusion; IV Intake: ll1 100ml 09:01 Drug: Acetaminophen PO 650 mg PO once Route: PO; jl7 10:34 Follow up: Response: No adverse reaction; Pain is decreased ll1 Disposition Summary: 02/11/24 10:20 Discharge Ordered Notes: Location: Home rn Problem: new rn Symptoms: have improved rn Condition: Stable rn Diagnosis - Epileptic seizures related to external causes, not intractable, without status rn epilepticus Followup: rn - With: Private Physician - When: As needed - Reason: Recheck today's complaints, Re-evaluation by your physician Discharge Instructions: - Seizure, Adult rn - Discharge Summary Sheet jl7 Forms: - Medication Reconciliation Form rn - Thank You Letter rn - Antibiotic rn progressive care - Prescription Opioid Use rn - Patient Portal Instructions rn - Leadership Thank You Letter rn - Work release form ll1 - Family Work Release ld1 Prescriptions: - Keppra 500 mg Oral tablet - take 1 tablet ORAL route every 12 hours; 60 tablet; Refills: 0, Product rn Selection Permitted Signatures: Dispatcher [employer] Renee Gutierres RN RN iw Tramaine Whitney MD MD rn Leal, Jahala, RN RN jl7 Alberto Yepez RN RN ll1
--- NOTE | 2024-02-11 10:20 | ER ---
Nurse's Notes [facility] Name: Maxine Durbin Age: 23 yrs Sex: Female : 2000 Arrival Date: 02/11/2024 Time: 07:48 Bed 19 Private MD: Diagnosis: Epileptic seizures related to external causes, not intractable, without status epilepticus Presentation: 02/10 07:53 Chief complaint: EMS states: seizure X 1 , + hx of seizures, non compliant with meds, iw has been out of [facility]. Coronavirus screen: At this time, the client does not indicate any symptoms associated with coronavirus-19. Ebola Screen: Patient negative for fever greater than or equal to 101.5 degrees Fahrenheit, and additional compatible Ebola Virus Disease symptoms Patient denies exposure to infectious person. Patient denies travel to an Ebola-affected area in the 21 days before illness onset. No symptoms or risks identified at this time. Initial Sepsis Screen: Does the patient meet any 2 criteria? No. Patient's initial sepsis screen is negative. Does the patient have a suspected source of infection? No. Patient's initial sepsis screen is negative. Risk Assessment: Do you want to hurt yourself or someone else? Patient reports no desire to harm self or others. Onset of symptoms was February 11, 2024. 07:53 Method Of Arrival: EMS: [facility] iw 07:53 Acuity: GARIMA 3 iw Triage Assessment: 10:33 General: Appears in no apparent distress. Behavior is calm, cooperative, appropriate ll1 for age. Pain: Denies pain. Neuro: no further seizure activity. 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 - Family history:: not pertinent. - Social history:: Smoking status: unknown. - Hospitalizations: : No recent hospitalization is reported. Screenin:27 [facility] ED Fall Risk Assessment (Adult) History of falling in the last 3 months, ll1 including since admission Yes- physiologic fall (2 pts) Confusion or Disorientation Yes (5 pts) Intoxicated or Sedated No (0 pts) Impaired Gait No (0 pts) Mobility Assist Device Used No (0 pt) Altered Elimination No (0 pt) Score/Fall Risk Level 3 or more points = High Risk Oriented to surroundings, Hourly rounding (assess needs \T\ fall precautionary measures) done. Abuse screen: Denies threats or abuse. Nutritional screening: No deficits noted. Tuberculosis screening: No symptoms or risk factors identified. Assessment: 08:26 General: Appears in no apparent distress. Behavior is calm, cooperative, appropriate ll1 for age. Pain: Denies pain. 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 09:01 Reassessment: Patient appears in no apparent distress at this time. Pt reports jl7 headache, rated 9/10 at this time. ERD notified, 650 mg Tylenol PO ordered, pt medicated as ordered. 09:57 Reassessment: No changes from previously documented assessment. Patient and/or family ll1 updated on plan of care and expected duration. Pain level reassessed. Patient is alert, oriented x 3, equal unlabored respirations, skin warm/dry/pink. 10:32 Reassessment: No changes from previously documented assessment. Patient and/or family ll1 updated on plan of care and expected duration. Pain level reassessed. Patient is alert, oriented x 3, equal unlabored respirations, skin warm/dry/pink. Patient states feeling better. Patient states symptoms have improved. Vital Signs: 07:53 BP 99 / 61; Pulse 70; Resp 16; Temp 97.9; Pulse Ox 100% on R/A; iw 08:44 BP 101 / 68; Pulse 62; Resp 17; Pulse Ox 100% on R/A; ll1 10:33 BP 111 / 61; Pulse 61; Resp 17; Pulse Ox 100% ; Pain 0/10; ll1 10:33 Pain Scale: Adult ll1 Rory Coma Score: 10:33 Eye Response: spontaneous(4). Motor Response: obeys commands(6). Verbal Response: ll1 oriented(5). Total: 15. ED Course: 07:53 Patient arrived in ED. jl7 07:54 Triage completed. iw 07:55 Tramaine Whitney MD is Attending Physician. rn 07:55 Arm band placed on. iw 07:57 Renee Grover RN is Primary Nurse. iw 08:10 Bed in low position. Call light in reach. Side rails up X2. Adult w/ patient. Warm jl7 blanket given. 08:10 Initial lab(s) drawn, by ED staff, sent to lab. Urine collected: clean catch specimen, jl7 clear. Maintain EMS IV. Dressing intact. Good blood return noted. Site clean \T\ dry. Gauge \T\ site: 20 right AC. 08:13 Basic Metabolic Panel Sent. ds4 08:13 CBC with Diff Sent. ds4 08:13 Urinalysis w/ reflexes Sent. ds4 08:13 Test, Urine Sent. ds4 08:27 Seizure precautions initiated. Provided Education on: ER procedures and process. ll1 09:58 Alberto Yepez, RN is Primary Nurse. ll1 10:33 No provider procedures requiring assistance completed. IV discontinued, intact, ll1 bleeding controlled, No redness/swelling at site. Pressure dressing applied. Administered Medications: 09:01 Drug: Keppra IV 1000 mg IV at calculated rate once Route: IV; Rate: calculated rate; jl7 Site: left antecubital; 10:00 Follow up: Response: No adverse reaction; IV Status: Completed infusion; IV Intake: ll1 100ml 09:01 Drug: Acetaminophen PO 650 mg PO once Route: PO; jl7 10:34 Follow up: Response: No adverse reaction; Pain is decreased ll1 Medication: 08:27 VIS not applicable for this client. ll1 Intake: 10:00 IV: 100ml; Total: 100ml. ll1 Outcome: 10:20 Discharge ordered by . rn 10:33 Discharged to home ambulatory, ll1 10:33 Condition: stable 10:33 Discharge instructions given to patient, family, Instructed on discharge instructions, follow up and referral plans. medication usage, Demonstrated understanding of instructions, follow-up care, medications, Prescriptions given X 1, 10:35 Patient left the ED. ll1 Signatures: Renee Grover RN RN iw Nieto, Roman, MD MD rn Swanson, Donovan ds4 Deisy Hauser RN RN jl7 Alberto Yepez RN RN ll1
[2024-02-11 10:41] VITALS: TEMP 97.9; O2SAT 100
[2024-02-11 11:13] VITALS: BP 111/61
== END ==
LOC: ER 07:48
DX: G40.509 Epileptic seizures related to external causes, not intractable, without status epilepticus (principal); Z88.0 Allergy status to penicillin
CPT/HCPCS: 36415; 80048; 81003; 81025; 85025; J1953